=== PATIENT | female | born 1930 | race Caucasian/White ===

== ENCOUNTER 2016-07-24 16:45 | Emergency (ER) | payer MEDICARE, BC ==
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
[2016-07-24 17:49] LABS: Basophils # (A) 0.1 k/uL (0-0.2); Basophils % (A) 1 %; CH 28.5; Eosinophils # (A) 0.1 k/uL (0-0.7); Eosinophils % (A) 2 %; HCT 34.7 % (34.0-46.0); HDW 2.71; HGB 11.9 gm/dL (11.4-16.0); Luc # (Auto) 0.07; Luc % (Auto) 1; Lymphocytes # (A) 1.6 k/uL (1.0-4.8); Lymphocytes % (A) 24 %; MCHC 34.2 g/dL (31.0-37.0); MCV 81.7 fL (80.0-100.0); Mean Platelet Volume 8.4; Monocytes # (A) 0.5 k/uL (0-1.0); Monocytes % (A) 8 %; Neutrophils # (A) 4.3 k/uL (1.3-7.7); Neutrophils % (A) 65 %; RBC 4.24 m/uL (3.80-5.40); RDW 14.2 % (11.5-15.5); WBC 6.7 k/uL (3.8-10.6); WBC (Perox) 6.76
[2016-07-24 18:02] LABS: ALT 73 U/L (9-52); AST 53 U/L (14-36); Alkaline Phosphatase 117 U/L (38-126); Anion Gap 10 mmol/L; Blood Urea Nitrogen 19 mg/dL (7-17); Carbon Dioxide 28 mmol/L (22-30); Chloride 91 mmol/L (98-107); Glucose 105 mg/dL (74-99); Non-African American GFR(MDRD) 52 (>60 ml/min/1.73 sqM); Potassium 3.8 mmol/L (3.5-5.1); Sodium 129 mmol/L (137-145); Total Bilirubin 0.5 mg/dL (0.2-1.3); Total Protein 7.1 g/dL (6.3-8.2)
[2016-07-24 18:19] LABS: Creatine Kinase MB 2.4 ng/mL (0.0-2.4)
--- NOTE | 2016-07-24 18:32 | CT ---
EXAMINATION TYPE: CT brain jelena wo con DATE OF EXAM: 07/24/2016 6:13 PM COMPARISON: NONE HISTORY: Pt fell today, left sided pain. CT DLP: 1463.1 mGycm, Automated exposure control for dose reduction was used. CONTRAST: None CT of the brain is performed utilizing 3 mm thick sections through the posterior fossa and 3 mm thick sections through the remaining calvarium. Study is performed within 24 hours of arrival to the hospital. No abnormal hyperdensity is present to suggest an acute intracranial hemorrhage. No mass lesion is evident. No acute infarcts are evident. There is mild periventricular white matter hypodensity, likely on the basis of microvascular ischemic changes. Ventricles and sulci are appropriate for the patient age. There is an air-fluid level within right maxillary sinus. Correlate for acute sinusitis. Orbital floo r appears intact on the coronal plane images. Left septal deviation is noted. Remaining paranasal sin uses are clear. Mild mucosal thickening may be within ethmoid air cells. Mastoid air cells are clear. IMPRESSIONS: 1. Mild periventricular white matter ischemic changes. 2. Clinical correlation recommended for acute right maxillary sinusitis CT cervical spine. COMPARISON: None CT of the cervical spine is performed in the axial plane at 2 mm thick sections. Reconstructed image s in the coronal, and sagittal plane are reviewed on the computer. No acute fractures are evident. Vertebral body alignment is normal. Disc space narrowing C5-C6 is present. Vertebral body heights are preserved. No spinal canal stenosis is evident. Mild foraminal narrowing is present from uncovertebral joint hypertrophy. Note is made of some facet degenerative changes as well. IMPRESSIONS: 1. No acute osseous abnormality. 2. Degenerative changes within the cervical spine
--- NOTE | 2016-07-24 18:33 | XR ---
EXAMINATION TYPE: XR chest 2V DATE OF EXAM: 07/24/2016 6:20 PM COMPARISON: NONE INDICATION: Cough TECHNIQUE: Single frontal view of the chest is obtained. FINDINGS: The heart size is normal. The pulmonary vasculature is upper limits of normal for size.. The lungs are clear. IMPRESSION: 1. Early volume overload may be present. Clinical correlation recommended
[2016-07-24 19:01] VITALS: RESP 18
[2016-07-24] MEDS ORDERED: SODIUM CHLORIDE 0.9% 500 ML IV STA (19:21)
[2016-07-24 20:33] LABS: Appearance,Urine Clear (Clear); Bacteria,Urine Rare /hpf; Bilirubin,Urine Negative (Negative); Glucose,Urine (UA) Negative (Negative); Ketones,Urine Negative (Negative); Leukocyte Esterase,Urine Moderate (Negative); Mucus,Urine Rare /hpf; Nitrite,Urine Negative (Negative); Particle Count 11210; Protein,Urine Negative (Negative); RBC,Urine 1 /hpf (0-5); Specific Gravity,Urine 1.004 (1.001-1.035); Squamous Epithelial Cell,Urine <1 /hpf (0-4); UA Billing (MACRO vs. MICRO) MICRO; Urobilinogen,Urine <2.0 mg/dL (<2.0); WBC,Urine 25 /hpf (0-5)
[2016-07-24 21:21] VITALS: BP 196/79; PULSE 55; TEMP 96.9
== END 2016-07-24 21:21 | disposition home or self-care (01) ==
LOC: EC 16:45
DX: S20.212A Contusion of left front wall of thorax, initial encounter (principal); S09.90XA Unspecified injury of head, initial encounter; E86.0 Dehydration; I25.2 Old myocardial infarction; I10 Essential (primary) hypertension; I48.91 Unspecified atrial fibrillation; Z82.49 Family history of ischemic heart disease and other diseases of the circulatory system; Z79.52 Long term (current) use of systemic steroids; Z79.899 Other long term (current) drug therapy; Z88.2 Allergy status to sulfonamides; W10.8XXA Fall (on) (from) other stairs and steps, initial encounter; W22.09XA Striking against other stationary object, initial encounter; Y93.01 Activity, walking, marching and hiking; Y92.89 Other specified places as the place of occurrence of the external cause
CPT/HCPCS: 36415; 70450; 71020; 72125; 80053; 81001; 82550; 82553; 83735; 85025; 93005; 99284

== ENCOUNTER 2017-07-01 20:27 | Inpatient (IN) | payer MEDICARE, BC ==
[2017-07-01] MEDS ORDERED: ONDANSETRON 4 MG/2 ML VIAL IVP STA (20:48)
[2017-07-01] MEDS ORDERED: SODIUM CHLORIDE 0.9% 500 ML IV ONE (20:48)
[2017-07-01] MEDS ORDERED: DICYCLOMINE 10 MG/ML 2 ML AMP IM STA (20:48)
--- NOTE | 2017-07-01 20:50 | ED ---
Syncope HPI - General Source: patient, EMS Mode of arrival: EMS Limitations: no limitations <Bravo Turcios - Last Filed: 07/01/17 21:48> <Daniel Campbell - Last Filed: 07/01/17 23:23> - General Chief Complaint: Syncope Stated Complaint: Syncope/Diarrhea Time Seen by Provider: 07/01/17 20:38 - History of Present Illness Initial Comments: This is an 86-year-old female with a history of paroxysmal A. fib, questionable CHF per the patient, diabetes, [place] who presents emergency department for a syncopal event. She states that she was home when she suddenly had the feeling of queasiness come over her lower abdominal area. She states that she tried to make it to the bathroom and then she had a loose stool on the floor. She states that she was able to complete her way to the bathroom and clean herself up. She was then brushing her teeth when all of a sudden she felt lightheaded. She sat down on the toilet and then does not recall anything after that. The family member states that when they walked into the bathroom they noticed that her head was back and her eyes were rolled back in her head. She was having a little bit of trembling. She was unconscious for a minute or so and then came to. EMS was called at that time. The patient states that she currently feels okay however still has a little bit of queasiness in her abdomen. She does not recall having any chest pain or shortness of breath. She states that she has been eating and drinking okay throughout the day. She denies any other acute complaints at this time. (Bravo Turcios) - Related Data Home Medications Medication Instructions Recorded Confirmed Docusate [Colace] 100 mg PO DAILY 09/17/15 05/20/17 Multivit-Min/FA/Lycopen/Lutein 1 tab PO DAILY 12/06/15 05/20/17 [Centrum Silver Tablet] Acetaminophen [Tylenol] 500 mg PO Q4-6H PRN 12/20/15 05/20/17 Levothyroxine Sodium [Synthroid] 50 mcg PO DAILY 07/24/16 05/20/17 Previous Rx's Medication Instructions Recorded Amiodarone [Cordarone] 200 mg PO BID #60 tab 12/11/15 Metoprolol Succinate (ER) [Toprol 25 mg PO DAILY #30 tab.er.24h 12/14/15 XL] Escitalopram [Lexapro] 10 mg PO DAILY #30 tab 12/23/15 Famotidine [Pepcid] 40 mg PO DAILY tab 05/22/17 HYDROcodone/APAP 5-325MG [[place] 1 - 2 each PO Q4-6H PRN #90 tab 05/22/17 5-325] Sennosides-Docusate Sodium 1 tab PO BID #60 tablet 05/22/17 [Senokot-S] Allergies Allergy/AdvReac Type Severity Reaction Status Date / Time sulfamethoxazole Allergy Rash/Hives Verified 07/01/17 20:45 [From Bactrim] trimethoprim [From Bactrim] Allergy Rash/Hives Verified 07/01/17 20:45 Review of Systems ROS Other: All systems not noted in ROS Statement are negative. <Bravo Turcios - Last Filed: 07/01/17 21:48> ROS Other: All systems not noted in ROS Statement are negative. <Daniel Campbell - Last Filed: 07/01/17 23:23> ROS Statement: Those systems with pertinent positive or pertinent negative responses have been documented in the HPI. Past Medical History Past Medical History: Atrial Fibrillation, Cancer, Hypertension, Myocardial Infarction ([place]), Pneumonia Additional Past Medical History / Comment(s): borderline diabetic, diverticulitIs, SCIATIC NERVE PAIN, UTI, SKIN CANCER REMOVED FROM FACE, CONSTIPATION, CHRONIC BACK PAIN DJD, RT INGUINAL HERNIA, GROVERS DISEASE Last Myocardial Infarction Date:: 1995? [facility]ST GUESS History of Any Multi-Drug Resistant Organisms: None Reported Past Surgical History: Adenoidectomy, Appendectomy, Cholecystectomy, Hernia Repair, Hysterectomy, Tonsillectomy Additional Past Surgical History / Comment(s): varicose vein, CATARACTS, SKIN CANCER REMOVED FROM FACE, COLONOSCOPY. Past Anesthesia/Blood Transfusion Reactions: No Reported Reaction Past Psychological History: No Psychological Hx Reported Smoking Status: Never smoker Past Alcohol Use History: None Reported Past Drug Use History: None Reported - Past Family History Sister(s) Family Medical History: Cancer Additional Family Medical History / Comment(s): BONE CA Mother Family Medical History: Myocardial Infarction ([place]) Father Family Medical History: Congestive Heart Failure (CHF) <Bravo Turcios - Last Filed: 07/01/17 21:48> General Exam Limitations: no limitations <Bravo Turcios - Last Filed: 07/01/17 21:48> <Daniel Campbell - Last Filed: 07/01/17 23:23> - General Exam Comments Initial Comments: Constitutional: Awake alert Appears comfortable Head: Normocephalic atraumatic Eyes: no conjunctival injection No scleral icterus EOMI, no conjunctival Neck: No JVD Supple Heart: Bradycardia with regular rhythm normal S1-S2 no murmurs Lungs: Clear to auscultation bilaterally No wheezing No rales Abdomen: Soft nondistended nontender Extremities: Non edematous DP pulses intact Radial pulses intact Neuro: A&Ox3 No focal neurologic deficits Psych: Appropriate mood and affect (Bravo Turcios) Vital Signs 07/01/17 07/01/17 07/01/17 20:27 21:21 22:36 Temperature 98.3 F 97.4 F L Pulse Rate 50 L 52 L 58 L Respiratory 18 18 18 Rate Blood Pressure 136/61 168/68 146/65 O2 Sat by Pulse 96 97 97 Oximetry EKG Findings - EKG Comments: EKG Findings:: EKG showing sinus bradycardia with a rate of 51. There is no abnormal ST segment changes. There is T-wave flattening inferiorly and laterally. QTC is 407. Other intervals are normal. No ectopy. <Bravo Turcios - Last Filed: 07/01/17 21:48> Medical Decision Making - Lab Data Result diagrams: 07/01/17 20:40 <Bravo Turcios - Last Filed: 07/01/17 21:48> - Lab Data Result diagrams: 07/01/17 20:40 07/01/17 21:20 <Daniel Campbell - Last Filed: 07/01/17 23:23> - Medical Decision Making Patient's lipase is elevated however when he went and saw the patient she was having no vomiting and she was in no pain and even on palpation had no pain. Patient also mentioned that 5 weeks ago she did hurt her shoulder but it never had it evaluated. I spoke with Lilly and she agreed with admission. I wrote admitting orders. I consult the GI. I consult the orthopedics (Daniel Campbell) - Lab Data Lab Results 07/01/17 07/01/17 07/01/17 Range/Units 20:40 20:40 20:40 WBC 8.3 (3.8-10.6) k/uL RBC 3.90 (3.80-5.40) m/uL Hgb 10.9 L (11.4-16.0) gm/dL Hct 32.9 L (34.0-46.0) % MCV 84.3 (80.0-100.0) fL MCH 28.0 (25.0-35.0) pg MCHC 33.2 (31.0-37.0) g/dL RDW 15.8 H (11.5-15.5) % Plt Count 124 L D (150-450) k/uL Neutrophils % 61 % Lymphocytes % 25 % Monocytes % 9 % Eosinophils % 3 % Basophils % 1 % Neutrophils # 5.1 (1.3-7.7) k/uL Lymphocytes # 2.1 (1.0-4.8) k/uL Monocytes # 0.7 (0-1.0) k/uL Eosinophils # 0.3 (0-0.7) k/uL Basophils # 0.0 (0-0.2) k/uL PT (9.0-12.0) sec INR (<1.2) APTT (22.0-30.0) sec Sodium (137-145) mmol/L Potassium (3.5-5.1) mmol/L Chloride (98-107) mmol/L Carbon Dioxide (22-30) mmol/L Anion Gap mmol/L BUN (7-17) mg/dL Creatinine (0.52-1.04) mg/dL Est GFR (MDRD) Af Amer (>60 ml/min/1.73 sqM) Est GFR (MDRD) Non-Af (>60 ml/min/1.73 sqM) Glucose (74-99) mg/dL Calcium (8.4-10.2) mg/dL Magnesium (1.6-2.3) mg/dL Total Bilirubin (0.2-1.3) mg/dL AST (14-36) U/L ALT (9-52) U/L Alkaline Phosphatase (38-126) U/L Total Creatine Kinase (30-135) U/L CK-MB (CK-2) (0.0-2.4) ng/mL CK-MB (CK-2) Rel Index Troponin I (0.000-0.034) ng/mL NT-Pro-B Natriuret Pep 544 pg/mL Total Protein (6.3-8.2) g/dL Albumin (3.5-5.0) g/dL Lipase (23-300) U/L Urine Color Urine Appearance (Clear) Urine pH (5.0-8.0) Ur Specific [place] (1.001-1.035) Urine Protein (Negative) Urine Glucose (UA) (Negative) Urine Ketones (Negative) Urine Blood (Negative) Urine Nitrite (Negative) Urine Bilirubin (Negative) Urine Urobilinogen (<2.0) mg/dL Ur Leukocyte Esterase (Negative) Urine RBC (0-5) /hpf Urine WBC (0-5) /hpf Ur Squamous Epith Cells (0-4) /hpf Urine Bacteria (None) /hpf Hyaline Casts (0-2) /lpf Urine Mucus (None) /hpf Blood Type O Positive Blood Type Recheck No Antibody Screen NEGATIVE Spec Expiration Date 07/04/2017233907/01/17 07/01/17 07/01/17 Range/Units 20:40 21:20 21:20 WBC (3.8-10.6) k/uL RBC (3.80-5.40) m/uL Hgb (11.4-16.0) gm/dL Hct (34.0-46.0) % MCV (80.0-100.0) fL MCH (25.0-35.0) pg MCHC (31.0-37.0) g/dL RDW (11.5-15.5) % Plt Count (150-450) k/uL Neutrophils % % Lymphocytes % % Monocytes % % Eosinophils % % Basophils % % Neutrophils # (1.3-7.7) k/uL Lymphocytes # (1.0-4.8) k/uL Monocytes # (0-1.0) k/uL Eosinophils # (0-0.7) k/uL Basophils # (0-0.2) k/uL PT 10.5 (9.0-12.0) sec INR 1.1 (<1.2) APTT 23.4 (22.0-30.0) sec Sodium 124 L (137-145) mmol/L Potassium 3.8 (3.5-5.1) mmol/L Chloride 89 L (98-107) mmol/L Carbon Dioxide 28 (22-30) mmol/L Anion Gap 7 mmol/L BUN 26 H (7-17) mg/dL Creatinine 1.10 H (0.52-1.04) mg/dL Est GFR (MDRD) Af Amer 57 (>60 ml/min/1.73 sqM) Est GFR (MDRD) Non-Af 47 (>60 ml/min/1.73 sqM) Glucose 111 H (74-99) mg/dL Calcium 8.4 (8.4-10.2) mg/dL Magnesium 1.9 (1.6-2.3) mg/dL Total Bilirubin 0.2 (0.2-1.3) mg/dL AST 26 (14-36) U/L ALT 38 (9-52) U/L Alkaline Phosphatase 142 H (38-126) U/L Total Creatine Kinase 26 L (30-135) U/L CK-MB (CK-2) 0.8 (0.0-2.4) ng/mL CK-MB (CK-2) Rel Index 3.1 Troponin I <0.012 (0.000-0.034) ng/mL NT-Pro-B Natriuret Pep pg/mL Total Protein 5.8 L (6.3-8.2) g/dL Albumin 3.0 L (3.5-5.0) g/dL Lipase 1381 H (23-300) U/L Urine Color Urine Appearance (Clear) Urine pH (5.0-8.0) Ur Specific [place] (1.001-1.035) Urine Protein (Negative) Urine Glucose (UA) (Negative) Urine Ketones (Negative) Urine Blood (Negative) Urine Nitrite (Negative) Urine Bilirubin (Negative) Urine Urobilinogen (<2.0) mg/dL Ur Leukocyte Esterase (Negative) Urine RBC (0-5) /hpf Urine WBC (0-5) /hpf Ur Squamous Epith Cells (0-4) /hpf Urine Bacteria (None) /hpf Hyaline Casts (0-2) /lpf Urine Mucus (None) /hpf Blood Type Blood Type Recheck Antibody Screen Spec Expiration Date 07/01/17 Range/Units 22:45 WBC (3.8-10.6) k/uL RBC (3.80-5.40) m/uL Hgb (11.4-16.0) gm/dL Hct (34.0-46.0) % MCV (80.0-100.0) fL MCH (25.0-35.0) pg MCHC (31.0-37.0) g/dL RDW (11.5-15.5) % Plt Count (150-450) k/uL Neutrophils % % Lymphocytes % % Monocytes % % Eosinophils % % Basophils % % Neutrophils # (1.3-7.7) k/uL Lymphocytes # (1.0-4.8) k/uL Monocytes # (0-1.0) k/uL Eosinophils # (0-0.7) k/uL Basophils # (0-0.2) k/uL PT (9.0-12.0) sec INR (<1.2) APTT (22.0-30.0) sec Sodium (137-145) mmol/L Potassium (3.5-5.1) mmol/L Chloride (98-107) mmol/L Carbon Dioxide (22-30) mmol/L Anion Gap mmol/L BUN (7-17) mg/dL Creatinine (0.52-1.04) mg/dL Est GFR (MDRD) Af Amer (>60 ml/min/1.73 sqM) Est GFR (MDRD) Non-Af (>60 ml/min/1.73 sqM) Glucose (74-99) mg/dL Calcium (8.4-10.2) mg/dL Magnesium (1.6-2.3) mg/dL Total Bilirubin (0.2-1.3) mg/dL AST (14-36) U/L ALT (9-52) U/L Alkaline Phosphatase (38-126) U/L Total Creatine Kinase (30-135) U/L CK-MB (CK-2) (0.0-2.4) ng/mL CK-MB (CK-2) Rel Index Troponin I (0.000-0.034) ng/mL NT-Pro-B Natriuret Pep pg/mL Total Protein (6.3-8.2) g/dL Albumin (3.5-5.0) g/dL Lipase (23-300) U/L Urine Color Yellow Urine Appearance Cloudy H (Clear) Urine pH 7.0 (5.0-8.0) Ur Specific [place] 1.008 (1.001-1.035) Urine Protein Negative (Negative) Urine Glucose (UA) Negative (Negative) Urine Ketones Negative (Negative) Urine Blood Negative (Negative) Urine Nitrite Negative (Negative) Urine Bilirubin Negative (Negative) Urine Urobilinogen 2.0 (<2.0) mg/dL Ur Leukocyte Esterase Trace H (Negative) Urine RBC 1 (0-5) /hpf Urine WBC 4 (0-5) /hpf Ur Squamous Epith Cells <1 (0-4) /hpf Urine Bacteria Rare H (None) /hpf Hyaline Casts 8 H (0-2) /lpf Urine Mucus Rare H (None) /hpf Blood Type Blood Type Recheck Antibody Screen Spec Expiration Date Disposition <Bravo Turcios - Last Filed: 07/01/17 21:48> Time of Disposition: 23:23 <Daniel Campbell - Last Filed: 07/01/17 23:23> Clinical Impression: Syncope, Pancreatitis, Shoulder strain Disposition: ADMITTED IP TO THIS HOSP Referrals: Zak Mantlila DO [Primary Care Provider] - 1-2 days
[2017-07-01 20:58] LABS: Basophils % (A) 1 %; Eosinophils # (A) 0.3 k/uL (0-0.7); Eosinophils % (A) 3 %; HCT 32.9 % (34.0-46.0); HGB 10.9 gm/dL (11.4-16.0); Lymphocytes # (A) 2.1 k/uL (1.0-4.8); Lymphocytes % (A) 25 %; MCHC 33.2 g/dL (31.0-37.0); MCV 84.3 fL (80.0-100.0); Mean Platelet Volume 8.7; Monocytes # (A) 0.7 k/uL (0-1.0); Monocytes % (A) 9 %; Neutrophils # (A) 5.1 k/uL (1.3-7.7); Neutrophils % (A) 61 %; RDW 15.8 % (11.5-15.5); WBC 8.3 k/uL (3.8-10.6)
[2017-07-01 21:02] LABS: Platelet Count 124 k/uL (150-450)
[2017-07-01 21:12] LABS: INR 1.1 (<1.2); Partial Thromboplastin Time 23.4 sec (22.0-30.0); Prothrombin Time 10.5 sec (9.0-12.0)
[2017-07-01 21:53] LABS: Calcium 8.4 mg/dL (8.4-10.2); Magnesium 1.9 mg/dL (1.6-2.3); Potassium 3.8 mmol/L (3.5-5.1); Total Bilirubin 0.2 mg/dL (0.2-1.3); Total Protein 5.8 g/dL (6.3-8.2)
[2017-07-01 22:07] LABS: Creatine Kinase 26 U/L (30-135)
[2017-07-01 22:19] LABS: Creatine Kinase MB 0.8 ng/mL (0.0-2.4); Troponin I <0.012 ng/mL (0.000-0.034)
[2017-07-01 22:56] LABS: Appearance,Urine Cloudy (Clear); Bacteria,Urine Rare /hpf; Bilirubin,Urine Negative (Negative); Blood,Urine Negative (Negative); Color,Urine Yellow; Glucose,Urine (UA) Negative (Negative); Hyaline Casts,Urine 8 /lpf (0-2); Ketones,Urine Negative (Negative); Leukocyte Esterase,Urine Trace (Negative); Mucus,Urine Rare /hpf; Nitrite,Urine Negative (Negative); Protein,Urine Negative (Negative); RBC,Urine 1 /hpf (0-5); Specific Gravity,Urine 1.008 (1.001-1.035); Squamous Epithelial Cell,Urine <1 /hpf (0-4); WBC,Urine 4 /hpf (0-5)
[2017-07-01] MEDS ORDERED: SODIUM CHLORIDE 0.9% 1,000 ML IV ONE (23:23)
--- NOTE | 2017-07-01 23:50 | XR ---
EXAMINATION TYPE: XR shoulder complete RT DATE OF EXAM: 07/01/2017 COMPARISON: NONE HISTORY: Shoulder pain TECHNIQUE: 3 views FINDINGS: There is narrowing of the subacromial joint space. I see no fracture nor dislocation. There is some osteopenia. IMPRESSION: Subacromial impingement probably due to chronic rotator cuff tear. No fracture seen.
[2017-07-02 00:48] VITALS: BMI 26.1
[2017-07-02] MEDS: ACETAMINOPHEN TAB 500 MG TAB PO PRN ×2 (09:43→20:32)
--- NOTE | 2017-07-02 10:18 | P.CRDCN ---
History of Present Illness Consult date: 07/02/17 History of present illness: Mrs. Bruce is a pleasant 86-year-old female past medical history significant for paroxysmal atrial fibrillation, hypertension and syncope. She follows with Dr. Singh as an outpatient. She has a loop recorder in place. History for noon she felt an episode of nausea and upset stomach and try to make it to the bathroom. Unfortunately she did not make it and had a loose bowel movement in the hallway. Sclerae by the time she made it to the bathroom to clean himself up she sat down on the toilet and had a momentary episode of LOC. Prior to and thereafter of the episode she denies chest pain, shortness of breath, dizziness or palpitations. She continued to have ongoing nausea with no vomiting. She states she feels much better today. Has no symptoms. EKG on arrival reveals sinus mechanism with a heart rate of [address] or T wave abnormalities noted. She fell on the left side of her body and complained of some left shoulder pain. X-ray reveals no acute fracture or injury. Laboratory data reviewed, hemoglobin 10.9, platelets 124, sodium 124, potassium 3.8, creatinine 1.1, magnesium 1.9, cardiac enzymes negative 1, lipase 1381. Current cardiac medications include Toprol 25 mg daily and amiodarone 100 mg daily. Most recent echocardiogram has been reviewed and reveals preserved left ventricular systolic function with ejection fraction 50-55% with mitral valve stenosis as well as mitral regurgitation. Review of systems At the time of my exam: CONSTITUTIONAL: Denies fever. Denies chills. EYES: Denies blurred vision. Denies vision changes. Denies eye pain. EARS, NOSE, MOUTH & THROAT: Denies headache. Denies sore throat. Denies ear pain. CARDIOVASCULAR: Denies chest pain. Denies shortness of breath. Denies orthopnea. Denies PND. Denies palpitations. RESPIRATORY: Denies cough. GASTROINTESTINAL: Denies abdominal pain. Denies diarrhea. Denies constipation. Denies nausea. Denies vomiting. MUSCULOSKELETAL: Denies myalgias. INTEGUMENTARY: Denies pruitis. Denies rash. NEUROLOGIC: Denies numbness. Denies tingling. Denies weakness. PSYCHIATRIC: Denies anxiety. Denies depression. ENDOCRINE: Denies fatigue. Denies weight change. Denies polydipsia. Denies polyurina. GENITOURINARY: Denies burning, hematuria or urgency with micturation. HEMATOLOGIC: Denies history of anemia. Denies bleeding. Physical exam Blood pressure 166/70 257 afebrile GENERAL: This is a 86-year-old female in no apparent distress at the time of my examination. HEENT: Head is atraumatic, normocephalic. Pupils are equal, round. Sclerae anicteric. Conjunctivae are clear. Mucous membranes of the mouth are moist. Neck is supple. There is no jugular venous distention. No carotid bruit is heard. LUNGS: Clear to auscultation no wheezes, rales or rhonchi. No chest wall tenderness is noted on palpation or with deep breathing. HEART: Regular rate and rhythm with murmur, no rubs or gallops. S1 and S2 heard. ABDOMEN: Soft, nontender. Bowel sounds are heard. No organomegaly noted. EXTREMITIES: No evidence of peripheral edema and no calf tenderness noted. VASCULAR: Radial and dorsalis pedis pulses palpated, no evidence of clubbing. NEUROLOGIC: Patient is awake, alert and oriented x3. ASSESSMENT 1. Syncope 2. Paroxysmal atrial fibrillation currently maintaining sinus mechanism not on long-term anticoagulation secondary to GI bleeding in the past. 3. Hypertension 4. Thrombocytopenia 5. Hyponatremia 6. Elevated lipase, unknown etiology PLAN Interrogate loop recorder to evaluate for possible arrhythmia. Continue with amiodarone as previously ordered. Nurse Practitioner note has been reviewed, I agree with a documented findings and plan of care. Patient was seen and examined. Past Medical History Past Medical History: Atrial Fibrillation, Cancer, Hypertension, Myocardial Infarction ([place]), Pneumonia Additional Past Medical History / Comment(s): borderline diabetic, diverticulitIs, SCIATIC NERVE PAIN, UTI, SKIN CANCER REMOVED FROM FACE, CONSTIPATION, CHRONIC BACK PAIN DJD, RT INGUINAL HERNIA, GROVERS DISEASE Last Myocardial Infarction Date:: 1995? BEST GUESS History of Any Multi-Drug Resistant Organisms: None Reported Past Surgical History: Adenoidectomy, Appendectomy, Cholecystectomy, Hernia Repair, Hysterectomy, Tonsillectomy Additional Past Surgical History / Comment(s): varicose vein, CATARACTS, SKIN CANCER REMOVED FROM FACE, COLONOSCOPY. Past Anesthesia/Blood Transfusion Reactions: No Reported Reaction Past Psychological History: No Psychological Hx Reported Additional Psychological History / Comment(s): LIVES IN HER OWN HOME,A DAUGHTER STAYS WITH HER IN HER HOME. USES A CANE WHEN UP-HX FALLS(LAST IN SEPTEMBER) Smoking Status: Never smoker Past Alcohol Use History: None Reported Past Drug Use History: None Reported - Past Family History Sister(s) Family Medical History: Cancer Additional Family Medical History / Comment(s): BONE CA Mother Family Medical History: Myocardial Infarction ([place]) Father Family Medical History: Congestive Heart Failure (CHF) Medications and Allergies Home Medications Medication Instructions Recorded Confirmed Type Docusate [Colace] 100 mg PO DAILY 09/17/15 07/02/17 History Multivit-Min/FA/Lycopen/Lutein 1 tab PO DAILY 12/06/15 07/02/17 History [Centrum Silver Tablet] Metoprolol Succinate (ER) [Toprol 25 mg PO DAILY #30 tab.er.24h 12/14/15 Rx XL] Acetaminophen [Tylenol] 500 mg PO Q4-6H PRN 12/20/15 07/02/17 History Escitalopram [Lexapro] 10 mg PO DAILY #30 tab 12/23/15 07/02/17 Rx Levothyroxine Sodium [Synthroid] 100 mcg PO DAILY 07/24/16 07/02/17 History Sennosides-Docusate Sodium 1 tab PO BID #60 tablet 05/22/17 07/02/17 Rx [Senokot-S] Amiodarone [Cordarone] 100 mg PO DAILY 07/02/17 07/02/17 History Famotidine [Pepcid] 40 mg PO BID 07/02/17 07/02/17 History Allergies Allergy/AdvReac Type Severity Reaction Status Date / Time sulfamethoxazole Allergy Rash/Hives Verified 07/02/17 09:10 [From Bactrim] trimethoprim [From Bactrim] Allergy Rash/Hives Verified 07/02/17 09:10 Physical Exam Vitals: Vital Signs Temp Pulse Pulse Resp BP BP Pulse Ox 07/02/17 07:00 97.3 F L 57 L 16 166/72 99 07/02/17 00:25 98.0 F 66 16 132/63 94 L 07/01/17 22:36 97.4 F L 58 L 18 146/65 97 07/01/17 21:21 52 L 18 168/68 97 07/01/17 20:27 98.3 F 50 L 18 136/61 96 Intake and Output 07/01/17 07/02/17 07/02/17 22:59 06:59 14:59 Intake Total 600 Balance 600 Intake: Intake, IV Titration 400 Amount Sodium Chloride 0.9% 1, 400 000 ml @ 75 mls/hr IV . [id number] ONE Rx#:[id number] Oral 200 Other: # Voids 1 1 Weight 86.183 kg 66.81 kg Results 07/01/17 20:40 07/01/17 21:20 Cardiac Enzymes 07/01/17 07/01/17 Range/Units 21:20 21:20 AST 26 (14-36) U/L CK-MB (CK-2) 0.8 (0.0-2.4) ng/mL Troponin I <0.012 (0.000-0.034) ng/mL Coagulation 07/01/17 Range/Units 20:40 PT 10.5 (9.0-12.0) sec APTT 23.4 (22.0-30.0) sec CBC 07/01/17 Range/Units 20:40 WBC 8.3 (3.8-10.6) k/uL RBC 3.90 (3.80-5.40) m/uL Hgb 10.9 L (11.4-16.0) gm/dL Hct 32.9 L (34.0-46.0) % Plt Count 124 L D (150-450) k/uL Comprehensive Metabolic Panel 07/01/17 Range/Units 21:20 Sodium 124 L (137-145) mmol/L Potassium 3.8 (3.5-5.1) mmol/L Chloride 89 L (98-107) mmol/L Carbon Dioxide 28 (22-30) mmol/L BUN 26 H (7-17) mg/dL Creatinine 1.10 H (0.52-1.04) mg/dL Glucose 111 H (74-99) mg/dL Calcium 8.4 (8.4-10.2) mg/dL AST 26 (14-36) U/L ALT 38 (9-52) U/L Alkaline Phosphatase 142 H (38-126) U/L Total Protein 5.8 L (6.3-8.2) g/dL Albumin 3.0 L (3.5-5.0) g/dL Current Medications Generic Name Dose Route Start Last Admin Trade Name Freq PRN Reason Stop Dose Admin Acetaminophen 500 mg 07/02/17 00:49 07/02/17 09:43 Tylenol Tab PO 500 mg Q6H PRN Administration Pain Sodium Chloride 1,000 mls @ 75 mls/hr 07/01/17 23:23 07/02/17 02:14 Saline 0.9% IV 07/02/17 12:42 75 mls/hr .[id number] ONE Administration Intake and Output 07/01/17 07/02/17 07/02/17 22:59 06:59 14:59 Intake Total 600 Balance 600 Intake: Intake, IV Titration 400 Amount Sodium Chloride 0.9% 1, 400 000 ml @ 75 mls/hr IV . [id number] ONE Rx#:[id number] Oral 200 Other: # Voids 1 1 Weight 86.183 kg 66.81 kg 07/01/17 20:40 07/01/17 21:20
--- NOTE | 2017-07-02 10:36 | P.CNOR ---
History of Present Illness - [facility] Consult date: 07/02/17 Requesting physician: Sasha Carr Consult reason: joint pain History of present illness: 86-year-old patient presented to the emergency room with history of syncopal episode. Patient reported right shoulder pain and orthopedic consultation was requested. Patient reports intermittent symptoms for several years now. Patient reports limited range of motion and weakness. Review of Systems Constitutional: Reports as per [facility] Past Medical History Past Medical History: Atrial Fibrillation, Cancer, Hypertension, Myocardial Infarction ([place]), Pneumonia Additional Past Medical History / Comment(s): borderline diabetic, diverticulitIs, SCIATIC NERVE PAIN, UTI, SKIN CANCER REMOVED FROM FACE, CONSTIPATION, CHRONIC BACK PAIN DJD, RT INGUINAL HERNIA, GROVERS DISEASE Last Myocardial Infarction Date:: 1995? BEST GUESS History of Any Multi-Drug Resistant Organisms: None Reported Past Surgical History: Adenoidectomy, Appendectomy, Cholecystectomy, Hernia Repair, Hysterectomy, Tonsillectomy Additional Past Surgical History / Comment(s): varicose vein, CATARACTS, SKIN CANCER REMOVED FROM FACE, COLONOSCOPY. Past Anesthesia/Blood Transfusion Reactions: No Reported Reaction Past Psychological History: No Psychological Hx Reported Additional Psychological History / Comment(s): LIVES IN HER OWN HOME,A DAUGHTER STAYS WITH HER IN HER HOME. USES A CANE WHEN UP-HX FALLS(LAST IN SEPTEMBER) Smoking Status: Never smoker Past Alcohol Use History: None Reported Past Drug Use History: None Reported - Past Family History Sister(s) Family Medical History: Cancer Additional Family Medical History / Comment(s): BONE CA Mother Family Medical History: Myocardial Infarction ([place]) Father Family Medical History: Congestive Heart Failure (CHF) Medications and Allergies Home Medications Medication Instructions Recorded Confirmed Type Docusate [Colace] 100 mg PO DAILY 09/17/15 07/02/17 History Multivit-Min/FA/Lycopen/Lutein 1 tab PO DAILY 12/06/15 07/02/17 History [Centrum Silver Tablet] Metoprolol Succinate (ER) [Toprol 25 mg PO DAILY #30 tab.er.24h 12/14/15 Rx XL] Acetaminophen [Tylenol] 500 mg PO Q4-6H PRN 12/20/15 07/02/17 History Escitalopram [Lexapro] 10 mg PO DAILY #30 tab 12/23/15 07/02/17 Rx Levothyroxine Sodium [Synthroid] 100 mcg PO DAILY 07/24/16 07/02/17 History Sennosides-Docusate Sodium 1 tab PO BID #60 tablet 05/22/17 07/02/17 Rx [Senokot-S] Amiodarone [Cordarone] 100 mg PO DAILY 07/02/17 07/02/17 History Famotidine [Pepcid] 40 mg PO BID 07/02/17 07/02/17 History Allergies Allergy/AdvReac Type Severity Reaction Status Date / Time sulfamethoxazole Allergy Rash/Hives Verified 07/02/17 09:10 [From Bactrim] trimethoprim [From Bactrim] Allergy Rash/Hives Verified 07/02/17 09:10 Physical Examination Osteopathic Statement: *. No significant issues noted on an osteopathic structural exam other than those noted in the History and Physical/Consult. On evaluation of the right shoulder there is no evidence for any ecchymosis or swelling about the shoulder girdle. Actively the patient is able to flex to about 30 abduct to about 30 and external rotation is 10 shy of neutral. There is diffuse tenderness along the anterior lateral acromial and rotator cuff insertion site. There is significant weakness with any attempt at external rotation. Drop arm sign is positive. No tenderness along the scapula. Distal neurovascular exam is intact. Results - Labs Labs: Abnormal Lab Results - Last 24 Hours (Table) 07/01/17 07/01/17 07/01/17 Range/Units 20:40 21:20 21:20 Hgb 10.9 L (11.4-16.0) gm/dL Hct 32.9 L (34.0-46.0) % RDW 15.8 H (11.5-15.5) % Plt Count 124 L D (150-450) k/uL Sodium 124 L (137-145) mmol/L Chloride 89 L (98-107) mmol/L BUN 26 H (7-17) mg/dL Creatinine 1.10 H (0.52-1.04) mg/dL Glucose 111 H (74-99) mg/dL Alkaline Phosphatase 142 H (38-126) U/L Total Creatine Kinase 26 L (30-135) U/L Total Protein 5.8 L (6.3-8.2) g/dL Albumin 3.0 L (3.5-5.0) g/dL Lipase 1381 H (23-300) U/L Urine Appearance (Clear) Ur Leukocyte Esterase (Negative) Urine Bacteria (None) /hpf Hyaline Casts (0-2) /lpf Urine Mucus (None) /hpf 07/01/17 Range/Units 22:45 Hgb (11.4-16.0) gm/dL Hct (34.0-46.0) % RDW (11.5-15.5) % Plt Count (150-450) k/uL Sodium (137-145) mmol/L Chloride (98-107) mmol/L BUN (7-17) mg/dL Creatinine (0.52-1.04) mg/dL Glucose (74-99) mg/dL Alkaline Phosphatase (38-126) U/L Total Creatine Kinase (30-135) U/L Total Protein (6.3-8.2) g/dL Albumin (3.5-5.0) g/dL Lipase (23-300) U/L Urine Appearance Cloudy H (Clear) Ur Leukocyte Esterase Trace H (Negative) Urine Bacteria Rare H (None) /hpf Hyaline Casts 8 H (0-2) /lpf Urine Mucus Rare H (None) /hpf H & H 07/01/17 Range/Units 20:40 Hgb 10.9 L (11.4-16.0) gm/dL Hct 32.9 L (34.0-46.0) % Coagulation 07/01/17 Range/Units 20:40 INR 1.1 (<1.2) Result Diagrams: 07/01/17 20:40 07/01/17 21:20 - Diagnostic results Shoulder x-ray: report reviewed, image reviewed (Superior migration of the humeral head consistent with rotator cuff arthropathy. Cystic changes of the tuberosity.) Assessment and Plan Assessment: Right shoulder rotator cuff arthropathy Plan: 1. The patient may progress with activities as tolerated regarding the right shoulder 2. Analgesics as indicated 3. If patient remains symptomatic then follow up on an outpatient basis would be indicated Time with Patient: Less than 30
[2017-07-02] MEDS: HEPARIN SODIUM,PORCINE 5,000 UNIT/ML 1 ML VIAL SQ SCH ×2 (13:44→20:32)
[2017-07-02] MEDS: AMIODARONE 100 MG TAB PO SCH (13:44)
[2017-07-02] MEDS: SODIUM CHLORIDE 0.9% 1,000 ML IV SCH (13:46)
[2017-07-02] MEDS: IOHEXOL 350 MG/ML 25 ML BOTTLE (ORAL USE) PO PRN ×2 (15:05→15:56)
--- NOTE | 2017-07-02 17:20 | CT ---
EXAMINATION TYPE: CT abdomen pelvis wo con DATE OF EXAM: 07/02/2017 COMPARISON: NONE HISTORY: Generalized abdominal pain. CT DLP: 516.3 mGycm Automated exposure control for dose reduction was used. TECHNIQUE: Helical acquisition of images was performed from the lung bases through the pelvis. FINDINGS: Lung bases are clear. No pleural or pericardial effusion is identified. Evaluation of the visceral organs of the abdomen is suboptimal without the use of intravenous contras t. The liver, spleen, adrenal glands, and kidneys are unremarkable. No hydronephrosis is identified. The pancreas is slightly atrophic but otherwise unremarkable. Thickening is noted in the pylorus of the stomach which is of unknown significance or etiology. There is no free fluid or free intraperitoneal air. The urinary bladder is diffusely distended. There is a inguinal hernia identified on the right which contains several nondilated loops of bowel. Herni a sac measures 4.3 x 4.9 cm and the neck of the hernia measures roughly 3.9 cm. There is a fracture o f the right pubic bone of both the superior and inferior aspects of the ring. No abnormally dilated loops of bowel are identified which would suggest bowel obstruction. Diverticul osis is identified in the descending and sigmoid colon. No definite evidence of acute diverticulitis is seen. The aorta is not dilated. IMPRESSION: 1. The urinary bladder is diffusely distended. Correlation for urinary retention and possible Narvaez c atheter placement is recommended. 2. Fractures identified of the right pubic bone. 3. Right-sided inguinal hernia is identified which appears to have a large neck. Nondilated loops of bowel are identified going into this hernia sac. 4. Diverticulosis without definite evidence of acute diverticulitis. 5. Thickening of the antrum/pylorus of the stomach unknown significance or etiology. Clinical correla tion is recommended. Endoscopy can be performed if warranted.
--- NOTE | 2017-07-02 19:20 | HP ---
HISTORY AND PHYSICAL DATE OF SERVICE: 07/02/2017 I am covering for Dr. Mantilla. CHIEF COMPLAINTS: Syncope. HISTORY OF PRESENT ILLNESS: This 86-year-old woman with a past medical history of multiple medical problems including history of atrial fibrillation, history of hypertension, history of myocardial infarction, history of diabetes and history of diabetes, history of sciatic nerve , adenoidectomy being followed by Dr. Mantilla in the outpatient setting is apparently admitted to [facility] with complaints with features of syncopal episode. The patient is had a sudden feeling of queasiness in the lower abdominal area. Subsequently patient tried to make it to the bathroom, but the patient had loose stool on the floor and subsequently the patient became lightheaded and sat down on the toilet and after that unable to recall things that happened. The patient is admitted for further evaluation and treatment. There is no history of fever, rigors. No history of headache, loss of consciousness, seizures. After admission, patient is found to have features of acute pancreatitis and also complaining of right shoulder pain also. PAST MEDICAL HISTORY: Atrial fibrillation, hypertension, myocardial infarction, appendectomy and cholecystectomy. MEDICATIONS: Prior to admission include home medications are: 1. Senna 1 tab p.o. b.i.d. 2. Multivitamins 1 p.o. daily. 3. Toprol-XL 25 mg p.o. 4. Synthroid 100 mcg p.o. daily. 5. Pepcid 40 mg p.o. b.i.d. 6. Lexapro 10 mg p.o. daily. 7. Colace 100 mg daily. 8. Cordarone 100 mg p.o. daily. 9. Tylenol 500 mg q.6h p.r.n. ALLERGIES: BACTRIM. FAMILY HISTORY: History of bone cancer in the family. SOCIAL HISTORY: No history of smoking. No history of alcohol intake. REVIEW OF SYSTEMS: ENT: Diminished hearing and diminished vision. CARDIOVASCULAR: No angina or palpitations. Respiratory: As mentioned earlier. GI: As mentioned earlier. : No dysuria. Nervous system: No numbness, weakness. Allergy/Immunology: No asthma or hayfever. Musculoskeletal: As mentioned earlier. HEMATOLOGY/ONCOLOGY: No history of anemia. ENDOCRINE: No history of diabetes. Hypothyroidism present. Constitutional: As mentioned earlier. Dermatology: Negative. Rheumatology: Negative. Psychiatric : As mentioned earlier. PHYSICAL EXAMINATION: The patient is alert and oriented times three. Pulse 57, blood pressure 160/72, respirations 16, temperature 97.3, pulse ox 98% on room air. HEENT: Conjunctivae normal. Oral mucosa moist. Neck is no jugular venous distention. No carotid bruit. No lymph nodes enlargement. Cardiovascular system: S1, S2 muffled. No S3, no S4. Respiratory: Breath sounds diminished in the bases. Scattered rhonchi. No crackles. ABDOMEN: Soft, nontender. No mass palpable. LEGS: No edema, no swelling. Nervous system: Higher functions as mentioned earlier, moves all 4 limbs, no focal motor or sensory deficits. Lymphatics: No lymph nodes palpable in the neck, axilla or groin. Skin no ulcer, rash or bleeding. LABS: WBC 8.2, hemoglobin 10.2, platelets 124. Sodium 134, creatinine is 1.10, and alkaline phosphatase 143. UA cloudy. ASSESSMENT: 1. Syncope for evaluation possibly vasovagal. 2. Rule out orthostatic hypotension, cardiac arrhythmia. 3. Acute pancreatitis with elevated lipase. 4. Increased creatinine with mild acute renal failure with secondary dehydration. 5. Hyponatremia. 6. Thrombocytopenia. 7. Anemia. 8. History of atrial fibrillation. 9. Hypertension. 10.History of myocardial infarction. 11.History of diverticulitis. 12.History of sciatic nerve pain. 13.History of urinary tract infection. 14.History of appendectomy. 15.History of cholecystectomy. 16.History of hernia repair. RECOMMENDATIONS AND DISCUSSION: In this 86-year-old woman who presented with multiple complex medical issues, we will monitor the patient closely, continue the current medications, management and symptomatic treatment. Otherwise, at this time, I would recommend swab for the flu. Continue the antibiotic. Continue with IV fluids. Otherwise I would also recommend DVT prophylaxis. Continue the rest of the home medication. Orthostatic vitals. Guarded prognosis because of multiple complex medical issues. Further recommendations to follow. MMODL / IJN: [id number] / MTDD
[2017-07-02 20:23] VITALS: RESP 16
--- NOTE | 2017-07-03 00:36 | P.CONS ---
History of Present Illness - Reason for Consult Consult date: 07/02/17 Pancreatitis - History of Present Illness The patient is an 86-year-old female with a history of paroxysmal A. fib, questionable CHF per the patient, diabetes, ME who presents emergency department for a syncopal event. She states that she was home when she suddenly had the feeling of queasiness come over her lower abdominal area. She states that she tried to make it to the bathroom and then she had a loose stool on the floor. She states that she was able to complete her way to the bathroom and clean herself up. She was then brushing her teeth when all of a sudden she felt lightheaded. She sat down on the toilet and then does not recall anything after that. The family member states that when they walked into the bathroom they noticed that her head was back and her eyes were rolled back in her head. She was having a little bit of trembling. She was unconscious for a minute or so and then came to. EMS was called at that time. The patient states that she currently feels okay however still has a little bit of queasiness in her abdomen. She does not recall having any chest pain or shortness of breath. She states that she has been eating and drinking okay throughout the day. She denies any other acute complaints at this time. Review of Systems Constitutional: Denies fever, chills, sweats, weight gain, or loss. HEENT: Negative for migraines, blurred vision or loss, earaches, drainage, tinnitus, oral mucosal lesions, dysphagia, or odynophagia. Cardiac: Negative for chest pain, arrhythmias, or palpitation. Respiratory: Negative for shortness of breath, hemoptysis, cough, or sputum production. Gastrointestinal: See HPI for pertinent findings. Genitourinary: Negative for hematuria, urgency, frequency, polyuria, dysuria. Musculoskeletal: Negative for muscle aches, swelling, arthritis, and arthralgias. Neurologic: Negative for stroke or TIA. Endocrine: Negative for thyroid problems. Skin: Negative for rash or itching. Psychiatric: Negative history for depression and anxiety Past Medical History Past Medical History: Atrial Fibrillation, Cancer, Hypertension, Myocardial Infarction (ME), Pneumonia Additional Past Medical History / Comment(s): borderline diabetic, diverticulitIs, SCIATIC NERVE PAIN, UTI, SKIN CANCER REMOVED FROM FACE, CONSTIPATION, CHRONIC BACK PAIN DJD, RT INGUINAL HERNIA, GROVERS DISEASE Last Myocardial Infarction Date:: 1995? [facility]ST GUESS History of Any Multi-Drug Resistant Organisms: None Reported Past Surgical History: Adenoidectomy, Appendectomy, Cholecystectomy, Hernia Repair, Hysterectomy, Tonsillectomy Additional Past Surgical History / Comment(s): varicose vein, CATARACTS, SKIN CANCER REMOVED FROM FACE, COLONOSCOPY. Past Anesthesia/Blood Transfusion Reactions: No Reported Reaction Past Psychological History: No Psychological Hx Reported Additional Psychological History / Comment(s): LIVES IN HER OWN HOME,A DAUGHTER STAYS WITH HER IN HER HOME. USES A CANE WHEN UP-HX FALLS(LAST IN SEPTEMBER) Smoking Status: Never smoker Past Alcohol Use History: None Reported Past Drug Use History: None Reported - Past Family History Sister(s) Family Medical History: Cancer Additional Family Medical History / Comment(s): BONE CA Mother Family Medical History: Myocardial Infarction (ME) Father Family Medical History: Congestive Heart Failure (CHF) Medications and Allergies Home Medications Medication Instructions Recorded Confirmed Type Docusate [Colace] 100 mg PO DAILY 09/17/15 07/02/17 History Multivit-Min/FA/Lycopen/Lutein 1 tab PO DAILY 12/06/15 07/02/17 History [Centrum Silver Tablet] Metoprolol Succinate (ER) [Toprol 25 mg PO DAILY #30 tab.er.24h 12/14/15 Rx XL] Acetaminophen [Tylenol] 500 mg PO Q4-6H PRN 12/20/15 07/02/17 History Escitalopram [Lexapro] 10 mg PO DAILY #30 tab 12/23/15 07/02/17 Rx Levothyroxine Sodium [Synthroid] 100 mcg PO DAILY 07/24/16 07/02/17 History Sennosides-Docusate Sodium 1 tab PO BID #60 tablet 05/22/17 07/02/17 Rx [Senokot-S] Amiodarone [Cordarone] 100 mg PO DAILY 07/02/17 07/02/17 History Famotidine [Pepcid] 40 mg PO BID 07/02/17 07/02/17 History Allergies Allergy/AdvReac Type Severity Reaction Status Date / Time sulfamethoxazole Allergy Rash/Hives Verified 07/02/17 09:10 [From Bactrim] trimethoprim [From Bactrim] Allergy Rash/Hives Verified 07/02/17 09:10 Physical Exam Vitals: Vital Signs Temp Pulse Pulse Resp BP BP Pulse Ox 07/02/17 15:00 98.7 F 59 L 18 110/65 96 07/02/17 08:00 57 L 16 07/02/17 07:00 97.3 F L 57 L 16 166/72 99 07/02/17 00:25 98.0 F 66 16 132/63 94 L 07/01/17 22:36 97.4 F L 58 L 18 146/65 97 07/01/17 21:21 52 L 18 168/68 97 07/01/17 20:27 98.3 F 50 L 18 136/61 96 Intake and Output 07/02/17 07/02/17 07/02/17 06:59 14:59 22:59 Intake Total 600 1380 Balance 600 1380 Intake: Intake, IV Titration 400 300 Amount Sodium Chloride 0.9% 1, 400 000 ml @ 75 mls/hr IV . [id number] [facility] Rx#:[id number] Sodium Chloride 0.9% 1, 300 000 ml @ 75 mls/hr IV . [id number] [facility] Rx#:[id number] Oral 200 1080 Other: Voiding Method Toilet # Voids 1 3 3 Weight 66.81 kg General appearance: The patient is alert, oriented, in no acute distress. HET: Head is normocephalic and atraumatic. Pupils are equal and reactive. Oropharynx is clear without lesions. Neck: Supple without lymphadenopathy. Trachea midline. Heart: S1 S2. Regular rate and rhythm. Lungs: No crackles or wheezes are heard. Abdomen: Soft, nontender, nondistended with bowel sounds. No peritoneal signs. No palpable organomegaly or masses. Extremities: Normal skin color and turgor. No cyanosis, rash, ulceration, clubbing, or edema. Radial and pedal pulses are 2/4 bilaterally. Neurological: No focal deficits. Strength and sensation are grossly intact. Results CBC & Chem 7: 07/01/17 20:40 07/01/17 21:20 Labs: Abnormal Lab Results - Last 24 Hours (Table) 07/01/17 07/01/17 07/01/17 Range/Units 20:40 21:20 21:20 Hgb 10.9 L (11.4-16.0) gm/dL Hct 32.9 L (34.0-46.0) % RDW 15.8 H (11.5-15.5) % Plt Count 124 L D (150-450) k/uL Sodium 124 L (137-145) mmol/L Chloride 89 L (98-107) mmol/L BUN 26 H (7-17) mg/dL Creatinine 1.10 H (0.52-1.04) mg/dL Glucose 111 H (74-99) mg/dL Alkaline Phosphatase 142 H (38-126) U/L Total Creatine Kinase 26 L (30-135) U/L Total Protein 5.8 L (6.3-8.2) g/dL Albumin 3.0 L (3.5-5.0) g/dL Lipase 1381 H (23-300) U/L Urine Appearance (Clear) Ur Leukocyte Esterase (Negative) Urine Bacteria (None) /hpf Hyaline Casts (0-2) /lpf Urine Mucus (None) /hpf 07/01/17 Range/Units 22:45 Hgb (11.4-16.0) gm/dL Hct (34.0-46.0) % RDW (11.5-15.5) % Plt Count (150-450) k/uL Sodium (137-145) mmol/L Chloride (98-107) mmol/L BUN (7-17) mg/dL Creatinine (0.52-1.04) mg/dL Glucose (74-99) mg/dL Alkaline Phosphatase (38-126) U/L Total Creatine Kinase (30-135) U/L Total Protein (6.3-8.2) g/dL Albumin (3.5-5.0) g/dL Lipase (23-300) U/L Urine Appearance Cloudy H (Clear) Ur Leukocyte Esterase Trace H (Negative) Urine Bacteria Rare H (None) /hpf Hyaline Casts 8 H (0-2) /lpf Urine Mucus Rare H (None) /hpf Assessment and Plan Assessment: Elevated lipase following an episode of syncope, with no clinical or radiological features of pancreatitis. Plan: Agree with your current managemet. It is possible that the elevated lipase is secondary to transient hypoperfusion of pancreas/small bowel. With the thickened pylorus/antrum a penetrating ulcer to be considered. Will keep EGD as a contingency.
[2017-07-03] MEDS: SODIUM CHLORIDE 0.9% 1,000 ML IV SCH ×3 (05:07→20:05)
[2017-07-03] MEDS: LEVOTHYROXINE 100 MCG TAB PO SCH (05:42)
[2017-07-03 07:38] LABS: Basophils % (A) 0 %; Eosinophils # (A) 0.2 k/uL (0-0.7); Eosinophils % (A) 3 %; HGB 10.3 gm/dL (11.4-16.0); Lymphocytes # (A) 1.5 k/uL (1.0-4.8); Lymphocytes % (A) 24 %; MCH 27.2 pg (25.0-35.0); MCHC 32.2 g/dL (31.0-37.0); MCV 84.5 fL (80.0-100.0); Mean Platelet Volume 8.4; Monocytes # (A) 0.6 k/uL (0-1.0); Monocytes % (A) 10 %; Neutrophils # (A) 3.8 k/uL (1.3-7.7); Neutrophils % (A) 61 %; Platelet Count 138 k/uL (150-450); RBC 3.78 m/uL (3.80-5.40); RDW 14.6 % (11.5-15.5); WBC 6.2 k/uL (3.8-10.6)
[2017-07-03 07:58] LABS: ALT 29 U/L (9-52); AST 22 U/L (14-36); Albumin 2.7 g/dL (3.5-5.0); Alkaline Phosphatase 117 U/L (38-126); Amylase 119 U/L (30-110); Anion Gap 5 mmol/L; Blood Urea Nitrogen 15 mg/dL (7-17); Calcium 8.8 mg/dL (8.4-10.2); Carbon Dioxide 29 mmol/L (22-30); Chloride 99 mmol/L (98-107); Cholesterol 106 mg/dL (<200); Glucose 97 mg/dL (74-99); HDL Cholesterol 69 mg/dL (40-60); LDL Cholesterol,Calculated 28 mg/dL (0-99); Lipase 653 U/L (23-300); Potassium 4.4 mmol/L (3.5-5.1); Sodium 133 mmol/L (137-145); Total Bilirubin 0.3 mg/dL (0.2-1.3); Total Protein 5.5 g/dL (6.3-8.2); Triglycerides 45 mg/dL (<150)
[2017-07-03] MEDS: AMIODARONE 100 MG TAB PO SCH (08:17)
[2017-07-03] MEDS: METOPROLOL SUCCINATE (ER) 25 MG TAB.ER.24H PO SCH (08:17)
[2017-07-03] MEDS: ESCITALOPRAM 10 MG TAB PO SCH (08:17)
[2017-07-03] MEDS: HEPARIN SODIUM,PORCINE 5,000 UNIT/ML 1 ML VIAL SQ SCH ×2 (08:17→19:45)
--- NOTE | 2017-07-03 14:25 | P.PN ---
Subjective Progress Note Date: 07/03/17 86-year-old female who presented to the emergency room on 07/01/2017 after she had a syncopal episode at home. She states she was feeling nauseous and was attempting to make it to the bathroom to have a bowel movement but she did not make it in time. She proceeded to the bathroom to clean herself up when she had a brief loss of consciousness. She also had complaints of right shoulder pain. In the emergency room, an EKG was completed revealing sinus bradycardia with no acute ST or T-wave abnormalities. X-ray of the right shoulder was completed revealing subacromial impingement likely due to chronic rotator cuff tear and was negative for fracture. Laboratory studies completed revealed white count of 8.3, hemoglobin 10.9, platelet count 124, sodium 124, potassium 3.9, BUN 26, creatinine 1.10, magnesium 1.9, going phosphatase 142, AST 26, ALC 38, DNP 544. Troponin negative 1. Her lipase was found to be elevated at 1381. Testing for influenza A and B was negative. Urinalysis revealed cloudy urine with trace leukocyte esterase. The patient was admitted to the hospital under the care of Dr. Mantilla. Consultations were placed to cardiology, gastroenterology, and orthopedics. Patient underwent CT of the abdomen and pelvis on 07/02/2017 which revealed urinary bladder that was diffusely distended, correlate for urinary retention, right pubic bone fracture, right-sided inguinal hernia, diverticulosis, and thickening of the antrum/pylorus of the stomach. The patient was seen and examined at the bedside. She is currently without concerns or complaints. She denies chest pain or pressure. Denies shortness of breath. Denies nausea or vomiting. States she is tolerating oral intake without difficulty. She states that she had a bowel movement yesterday and it was normal in characteristics. She states she has been voiding without difficulty, however she states she does feel that she is voiding less than she normally does. Denies frequency or incontinence. Spoke with patient regarding CT results and patient states that she fell in May and was told that she had a fracture in her pelvis. Objective - Vital Signs Vital signs: Vital Signs Temp 97.3 F L 07/03/17 07:00 Pulse 63 07/03/17 08:00 Resp 16 07/03/17 08:00 BP 167/71 07/03/17 07:00 Pulse Ox 94 L 07/03/17 07:00 Intake & Output 07/02/17 07/03/17 07/03/17 18:59 06:59 18:59 Intake Total 1380 225 240 Balance 1380 225 240 Intake: Intake, IV Titration 300 225 Amount Sodium Chloride 0.9% 1, 300 225 000 ml @ 75 mls/hr IV . [id number] [facility] Rx#:[id number] Oral 1080 240 Other: Voiding Method Toilet Bedside Commode Bedside Commode # Voids 3 1 - Exam GENERAL: This is a 86-year-old female in no apparent distress at the time of examination. Pleasant and cooperative. HEENT: Head is atraumatic, normocephalic. Pupils are equal, round, and reactive to light. Sclerae anicteric. Conjunctivae are clear. Mucus membranes of the mouth are moist. Neck is supple. RESPIRATORY: Clear to ausculation. No wheezes, rales, or rhonchi. No use of accessory muscles. Patient maintaining oxygen saturation greater than 92% on room air. No chest wall tenderness is noted on palpation or with deep breathing. CARDIOVASCULAR: Regular rate and rhythm. S1 and S2 noted. No systolic or diastolic murmur auscultated. No JVD noted. No S3 or S4 noted. GASTROINTESTINAL: No distention noted. Abdomen soft and round. Normal active bowel sounds auscultated x 4 quadrants. No pain or tenderness noted upon palpation. INTEGUMENTARY: No cyanosis. No jaundice. No rashes noted. No cellulitis noted. EXTREMITIES: 2+ peripheral pulses. No evidence of peripheral edema. No calf tenderness noted. NEUROLOGIC: Cranial nerves II-XII intact. PSYCHIATRIC: Awake, alert, and oriented X 3. Appropriate affect. Intact judgement and insight. - Labs CBC & Chem 7: 07/03/17 07:16 07/03/17 07:16 Labs: Abnormal Lab Results - Last 24 Hours (Table) 07/03/17 07/03/17 Range/Units 07:16 07:16 RBC 3.78 L (3.80-5.40) m/uL Hgb 10.3 L (11.4-16.0) gm/dL Hct 32.0 L (34.0-46.0) % Plt Count 138 L (150-450) k/uL Sodium 133 L (137-145) mmol/L Total Protein 5.5 L (6.3-8.2) g/dL Albumin 2.7 L (3.5-5.0) g/dL HDL Cholesterol 69 H (40-60) mg/dL Amylase 119 H (30-110) U/L Lipase 653 H (23-300) U/L Assessment and Plan Plan: ASSESSMENT: Syncope Paroxysmal atrial fibrillation, not on long-term anticoagulation secondary to history of GIB Elevated amylase and lipase, no clinical features of pancreatitis, possibly secondary to transient hypoperfusion of pancreas per GI Diabetes mellitus, type II, hemoglobin A1c pending Possible urinary retention Essential hypertension Right shoulder cuff arthropathy Right pubic bone fracture, s/p fall in May per patient Coronary artery disease with history of myocardial infarction Hyponatremia, improving Normocytic, normochromic anemia, type unknown Hypothyroidism PLAN: Cardiology on consult. Appreciate recommendations and input Orthopedics on consult. Appreciate recommendations and input GI on consult. Appreciate recommendations and input Obtain postvoid residual Obtain hemoglobin A1c Capillary blood glucose accu-checks AC/HS NovoLog sliding scale insulin coverage AC/HS Home meds as appropriate Monitor labs GI prophylaxis: Pepcid 20 mg PO BID DVT prophylaxis: Heparin 5000 units subcu every 12 hours Monitor vital signs and address as appropriate Discharge planning: Patient to return home with home care Further recommendations pending patient's course Nurse practitioner note has been reviewed by physician. Signing provider agrees with the documented findings, assessment, and plan of care.
[2017-07-03 17:18] LABS: Glucose,Whole Blood 122 mg/dL (75-99)
[2017-07-03] MEDS: INSULIN ASPART 100 UNIT/ML 1 ML 10 ML VIAL SQ SCH ×2 (17:43→22:34)
[2017-07-03] MEDS: FAMOTIDINE 20 MG TAB PO SCH (19:46)
[2017-07-03 20:22] LABS: Glucose,Whole Blood 143 mg/dL (75-99)
[2017-07-03 22:16] LABS: Hemoglobin A1C 5.4 % (4.0-6.0)
[2017-07-04] MEDS: ACETAMINOPHEN TAB 500 MG TAB PO PRN ×3 (03:56→21:14)
[2017-07-04] MEDS: LEVOTHYROXINE 100 MCG TAB PO SCH (06:15)
[2017-07-04 07:10] LABS: Glucose,Whole Blood 106 mg/dL (75-99)
[2017-07-04] MEDS: INSULIN ASPART 100 UNIT/ML 1 ML 10 ML VIAL SQ SCH ×4 (07:30→21:08)
[2017-07-04 08:33] LABS: Basophils % (A) 0 %; Eosinophils # (A) 0.2 k/uL (0-0.7); Eosinophils % (A) 3 %; HCT 29.9 % (34.0-46.0); HGB 9.5 gm/dL (11.4-16.0); Lymphocytes # (A) 1.6 k/uL (1.0-4.8); Lymphocytes % (A) 24 %; MCHC 31.7 g/dL (31.0-37.0); MCV 85.1 fL (80.0-100.0); Mean Platelet Volume 7.5; Monocytes # (A) 0.6 k/uL (0-1.0); Monocytes % (A) 9 %; Neutrophils % (A) 62 %; Platelet Count 145 k/uL (150-450); RBC 3.51 m/uL (3.80-5.40); RDW 14.6 % (11.5-15.5); WBC 6.4 k/uL (3.8-10.6)
[2017-07-04] MEDS: FAMOTIDINE 20 MG TAB PO SCH (08:53)
[2017-07-04] MEDS: ESCITALOPRAM 10 MG TAB PO SCH (08:53)
[2017-07-04] MEDS: AMIODARONE 100 MG TAB PO SCH (08:54)
[2017-07-04] MEDS: METOPROLOL SUCCINATE (ER) 25 MG TAB.ER.24H PO SCH (08:54)
[2017-07-04] MEDS: HEPARIN SODIUM,PORCINE 5,000 UNIT/ML 1 ML VIAL SQ SCH ×2 (08:55→21:08)
[2017-07-04 09:00] LABS: ALT 33 U/L (9-52); AST 21 U/L (14-36); Albumin 2.5 g/dL (3.5-5.0); Alkaline Phosphatase 96 U/L (38-126); Amylase 81 U/L (30-110); Anion Gap 4 mmol/L; Blood Urea Nitrogen 14 mg/dL (7-17); Calcium 8.6 mg/dL (8.4-10.2); Carbon Dioxide 28 mmol/L (22-30); Chloride 100 mmol/L (98-107); Glucose 89 mg/dL (74-99); Lipase 408 U/L (23-300); Potassium 4.3 mmol/L (3.5-5.1); Sodium 132 mmol/L (137-145); Total Bilirubin 0.3 mg/dL (0.2-1.3); Total Protein 5.1 g/dL (6.3-8.2)
--- NOTE | 2017-07-04 10:59 | P.PN ---
Subjective Progress Note Date: 07/04/17 86-year-old female who presented to the emergency room on 07/01/2017 after she had a syncopal episode at home. She states she was feeling nauseous and was attempting to make it to the bathroom to have a bowel movement but she did not make it in time. She proceeded to the bathroom to clean herself up when she had a brief loss of consciousness. She also had complaints of right shoulder pain. In the emergency room, an EKG was completed revealing sinus bradycardia with no acute ST or T-wave abnormalities. X-ray of the right shoulder was completed revealing subacromial impingement likely due to chronic rotator cuff tear and was negative for fracture. Laboratory studies completed revealed white count of 8.3, hemoglobin 10.9, platelet count 124, sodium 124, potassium 3.9, BUN 26, creatinine 1.10, magnesium 1.9, going phosphatase 142, AST 26, ALC 38, DNP 544. Troponin negative 1. Her lipase was found to be elevated at 1381. Testing for influenza A and B was negative. Urinalysis revealed cloudy urine with trace leukocyte esterase. The patient was admitted to the hospital under the care of Dr. Mantilla. Consultations were placed to cardiology, gastroenterology, and orthopedics. Patient underwent CT of the abdomen and pelvis on 07/02/2017 which revealed urinary bladder that was diffusely distended, correlate for urinary retention, right pubic bone fracture, right-sided inguinal hernia, diverticulosis, and thickening of the antrum/pylorus of the stomach. 07/03/2017 The patient was seen and examined at the bedside. She is currently without concerns or complaints. She denies chest pain or pressure. Denies shortness of breath. Denies nausea or vomiting. States she is tolerating oral intake without difficulty. She states that she had a bowel movement yesterday and it was normal in characteristics. She states she has been voiding without difficulty, however she states she does feel that she is voiding less than she normally does. Denies frequency or incontinence. Spoke with patient regarding CT results and patient states that she fell in May and was told that she had a fracture in her pelvis. 07/04/2017 Patient seen and examined at the bedside. Patient is awake and alert. Patient was bladder scanned yesterday and found to be retaining urine. An indwelling urinary catheter was inserted with return of 700cc of urine. Patient states she had a headache this morning but it has since resolved. She denies pain or comfort. Denies shortness of breath. Denies chest pain or pressure. Amylase has improved from 119 to 81. Lipase has improved from 653 to 408. Sodium remains low at 132. Hemoglobin today is 9.5. Telemetry reveals SB with a rate in the 50s. Blood pressure has been stable, slightly elevated this morning at 154/68. Objective - Vital Signs Vital signs: Vital Signs Temp 97.7 F 07/04/17 07:00 Pulse 63 07/04/17 07:40 Resp 16 07/04/17 07:40 BP 154/68 07/04/17 07:00 Pulse Ox 97 07/04/17 07:00 Intake & Output 07/03/17 07/04/17 07/04/17 18:59 06:59 18:59 Intake Total 1135 325 460 Output Total 1908 2150 Balance -773 -1825 460 Weight 66.81 kg Intake: Intake, IV Titration 375 325 Amount Sodium Chloride 0.9% 1, 375 325 000 ml @ 75 mls/hr IV . [id number] [facility] Rx#:[id number] Oral 760 460 Output: Urine 1300 2150 Uretheral (Brown) 700 Post Void Residual 608 Other: Voiding Method Toilet Indwelling Catheter Indwelling Catheter Bedside Commode - Exam GENERAL: This is a 86-year-old female in no apparent distress at the time of examination. Pleasant and cooperative. HEENT: Head is atraumatic, normocephalic. Pupils are equal, round, and reactive to light. Sclerae anicteric. Conjunctivae are clear. Mucus membranes of the mouth are moist. Neck is supple. RESPIRATORY: Clear to ausculation. No wheezes, rales, or rhonchi. No use of accessory muscles. Patient maintaining oxygen saturation greater than 92% on room air. No chest wall tenderness is noted on palpation or with deep breathing. CARDIOVASCULAR: Regular rate and rhythm. S1 and S2 noted. No systolic or diastolic murmur auscultated. No JVD noted. No S3 or S4 noted. GASTROINTESTINAL: No distention noted. Abdomen soft and round. Normal active bowel sounds auscultated x 4 quadrants. No pain or tenderness noted upon palpation. INTEGUMENTARY: No cyanosis. No jaundice. No rashes noted. No cellulitis noted. EXTREMITIES: 2+ peripheral pulses. No evidence of peripheral edema. No calf tenderness noted. NEUROLOGIC: Cranial nerves II-XII intact. PSYCHIATRIC: Awake, alert, and oriented X 3. Appropriate affect. Intact judgement and insight. - Labs CBC & Chem 7: 07/04/17 07:29 07/04/17 07:29 Labs: Abnormal Lab Results - Last 24 Hours (Table) 07/03/17 07/03/17 07/04/17 Range/Units 17:16 20:20 07:08 RBC (3.80-5.40) m/uL Hgb (11.4-16.0) gm/dL Hct (34.0-46.0) % Plt Count (150-450) k/uL Sodium (137-145) mmol/L POC Glucose (mg/dL) 122 H 143 H 106 H (75-99) mg/dL Total Protein (6.3-8.2) g/dL Albumin (3.5-5.0) g/dL Lipase (23-300) U/L 07/04/17 07/04/17 Range/Units 07:29 07:29 RBC 3.51 L (3.80-5.40) m/uL Hgb 9.5 L (11.4-16.0) gm/dL Hct 29.9 L (34.0-46.0) % Plt Count 145 L (150-450) k/uL Sodium 132 L (137-145) mmol/L POC Glucose (mg/dL) (75-99) mg/dL Total Protein 5.1 L (6.3-8.2) g/dL Albumin 2.5 L (3.5-5.0) g/dL Lipase 408 H (23-300) U/L Assessment and Plan Plan: ASSESSMENT: Syncope Paroxysmal atrial fibrillation, not on long-term anticoagulation secondary to history of GIB Elevated amylase and lipase, no clinical features of pancreatitis, possibly secondary to transient hypoperfusion of pancreas per GI Diabetes mellitus, type II, hemoglobin A1c 5.4% Urinary retention requiring initiation of indwelling urinary catheter Essential hypertension Right shoulder cuff arthropathy Right pubic bone fracture, s/p fall in May per patient Coronary artery disease with history of myocardial infarction Hyponatremia, improving since day of admission Normocytic, normochromic anemia, type unknown Hypothyroidism PLAN: Cardiology on consult. Appreciate recommendations and input Orthopedics on consult. Appreciate recommendations and input GI on consult. Appreciate recommendations and input Discontinue IV fluids Continue urinary catheter at this time Per Dr. aMntilla, patient may be discharged home with brown and follow up outpatient with urology Capillary blood glucose accu-checks AC/HS NovoLog sliding scale insulin coverage AC/HS Home meds as appropriate Monitor labs PT/OT Activity as tolerated GI prophylaxis: Pepcid 20 mg PO BID DVT prophylaxis: Heparin 5000 units subcu every 12 hours Monitor vital signs and address as appropriate Discharge planning: Patient to return home with home care Further recommendations pending patient's course Anticipate discharge home tomorrow if patient remains stable Nurse practitioner note has been reviewed by physician. Signing provider agrees with the documented findings, assessment, and plan of care.
[2017-07-04 11:30] LABS: Glucose,Whole Blood 128 mg/dL (75-99)
[2017-07-04 16:37] LABS: Glucose,Whole Blood 119 mg/dL (75-99)
[2017-07-04 20:24] LABS: Glucose,Whole Blood 186 mg/dL (75-99)
[2017-07-05] MEDS: LEVOTHYROXINE 100 MCG TAB PO SCH (06:16)
[2017-07-05 07:04] LABS: Glucose,Whole Blood 98 mg/dL (75-99)
[2017-07-05 08:11] VITALS: BP 182/75; PULSE 58; TEMP 97.6
[2017-07-05] MEDS: INSULIN ASPART 100 UNIT/ML 1 ML 10 ML VIAL SQ SCH ×2 (08:46→12:57)
[2017-07-05] MEDS ORDERED: FAMOTIDINE 20 MG TAB PO SCH (09:00)
[2017-07-05] MEDS: HEPARIN SODIUM,PORCINE 5,000 UNIT/ML 1 ML VIAL SQ SCH (09:03)
[2017-07-05] MEDS: ESCITALOPRAM 10 MG TAB PO SCH (09:08)
[2017-07-05] MEDS: AMIODARONE 100 MG TAB PO SCH (09:09)
[2017-07-05] MEDS: METOPROLOL SUCCINATE (ER) 25 MG TAB.ER.24H PO SCH (09:10)
--- NOTE | 2017-07-05 09:12 | P.DS ---
Providers Date of admission: 07/01/17 23:25 Expected date of discharge: 07/05/17 Attending physician: Zak Mantilla Consults: 07/01/17 23:23 Consult Physician Urgent Consulting Provider: [facility] Consult Reason/Comments: Syncope Do you want consulting provider notified?: Yes Consult Physician Urgent Consulting Provider: Fransisco Blanco Consult Reason/Comments: Shoulder injury Do you want consulting provider notified?: Yes Consult Physician Urgent Consulting Provider: Ani Cm Consult Reason/Comments: Pancreatitis Do you want consulting provider notified?: Yes Primary care physician: Zak Mantilla [facility] Course: 86-year-old female who presented to the emergency room on 07/01/2017 after she had a syncopal episode at home. She states she was feeling nauseous and was attempting to make it to the bathroom to have a bowel movement but she did not make it in time. She proceeded to the bathroom to clean herself up when she had a brief loss of consciousness. She also had complaints of right shoulder pain. In the emergency room, an EKG was completed revealing sinus bradycardia with no acute ST or T-wave abnormalities. X-ray of the right shoulder was completed revealing subacromial impingement likely due to chronic rotator cuff tear and was negative for fracture. Laboratory studies completed revealed white count of 8.3, hemoglobin 10.9, platelet count 124, sodium 124, potassium 3.9, BUN 26, creatinine 1.10, magnesium 1.9, going phosphatase 142, AST 26, ALC 38, DNP 544. Troponin negative 1. Her lipase was found to be elevated at 1381. Testing for influenza A and B was negative. Urinalysis revealed cloudy urine with trace leukocyte esterase. The patient was admitted to the hospital under the care of Dr. Mantilla. Consultations were placed to cardiology, gastroenterology, and orthopedics. Patient underwent CT of the abdomen and pelvis on 07/02/2017 which revealed urinary bladder that was diffusely distended, correlate for urinary retention, right pubic bone fracture, right-sided inguinal hernia, diverticulosis, and thickening of the antrum/pylorus of the stomach. Spoke with patient regarding CT results and patient states that she fell in May and was told that she had a fracture in her pelvis. Patients amylase and lipase and trending downward. Patient denies any abdominal pain. She was evaluated by GI and no intervention or further workup was recommended. Orthopedics evaluated the patient and no acute intervention was recommended. The patient may follow up on an as needed basis with orthopedics outpatient. She was evaluated by cardiology and no further recommendations were made from a cardiology standpoint. She is to follow up with cardiology on an as-needed basis outpatient. Patient was bladder scanned 07/03/2017 and found to be retaining urine. An indwelling urinary catheter was inserted with return of 700cc of urine. Per Dr Mantilla, patient may discharged home with urinary catheter and is to follow up outpatient with urology. She was deemed stable for discharge. Patient is to resume previous home medications discharge diagnosis Syncope Paroxysmal atrial fibrillation, not on long-term anticoagulation secondary to history of GIB Elevated amylase and lipase, no clinical features of pancreatitis, possibly secondary to transient hypoperfusion of pancreas per GI Diabetes mellitus, type II, hemoglobin A1c 5.4% Urinary retention requiring initiation of indwelling urinary catheter Essential hypertension Right shoulder cuff arthropathy Right pubic bone fracture, s/p fall in May per patient Coronary artery disease with history of myocardial infarction Hyponatremia, improving since day of admission Normocytic, normochromic anemia, type unknown Hypothyroidism Nurse practitioner note has been reviewed by physician. Signing provider agrees with the documented findings, assessment, and plan of care. Plan - Discharge Summary Discharge Rx Participant: No New Discharge Prescriptions: Continue Docusate [Colace] 100 mg PO DAILY Multivit-Min/FA/Lycopen/Lutein [Centrum Silver Tablet] 1 tab PO DAILY Metoprolol Succinate (ER) [Toprol XL] 25 mg PO DAILY #30 tab.er.24h Acetaminophen [Tylenol] 500 mg PO Q4-6H PRN PRN Reason: Pain Escitalopram [Lexapro] 10 mg PO DAILY #30 tab Levothyroxine Sodium [Synthroid] 100 mcg PO DAILY Sennosides-Docusate Sodium [Senokot-S] 1 tab PO BID #60 tablet Amiodarone [Cordarone] 100 mg PO DAILY Famotidine [Pepcid] 40 mg PO BID Discharge Medication List Docusate [Colace] 100 mg PO DAILY 09/17/15 [History] Multivit-Min/FA/Lycopen/Lutein [Centrum Silver Tablet] 1 tab PO DAILY 12/06/15 [ History] Metoprolol Succinate (ER) [Toprol XL] 25 mg PO DAILY #30 tab.er.24h 12/14/15 [Rx ] Acetaminophen [Tylenol] 500 mg PO Q4-6H PRN 12/20/15 [History] Escitalopram [Lexapro] 10 mg PO DAILY #30 tab 12/23/15 [Rx] Levothyroxine Sodium [Synthroid] 100 mcg PO DAILY 07/24/16 [History] Sennosides-Docusate Sodium [Senokot-S] 1 tab PO BID #60 tablet 05/22/17 [Rx] Amiodarone [Cordarone] 100 mg PO DAILY 07/02/17 [History] Famotidine [Pepcid] 40 mg PO BID 07/02/17 [History] Follow up Appointment(s)/Referral(s): Fredrick Valera MD [STAFF PHYSICIAN] - As Needed Javy Staples MD [STAFF PHYSICIAN] - As Needed Alex Church MD [STAFF PHYSICIAN] - 1 Week Zak Mantilla DO [Primary Care Provider] - 1 Week Fransisco Blanco DO [Doctor of Osteopathic Medicine] - As Needed Activity/Diet/Wound Care/Special Instructions: Patient to be discharged home with indwelling urinary catheter Empty catheter drainage bag when 1/3-1/2 full Leave catheter in place until you see Dr. Church, urologist. Discharge Disposition: HOME SELF-CARE
[2017-07-05 09:17] LABS: Basophils % (A) 0 %; Eosinophils # (A) 0.2 k/uL (0-0.7); Eosinophils % (A) 4 %; HCT 31.5 % (34.0-46.0); HGB 10.1 gm/dL (11.4-16.0); Lymphocytes # (A) 1.3 k/uL (1.0-4.8); Lymphocytes % (A) 24 %; MCH 27.8 pg (25.0-35.0); MCHC 32.1 g/dL (31.0-37.0); MCV 86.7 fL (80.0-100.0); Mean Platelet Volume 8.4; Monocytes # (A) 0.5 k/uL (0-1.0); Monocytes % (A) 9 %; Neutrophils # (A) 3.3 k/uL (1.3-7.7); Neutrophils % (A) 62 %; Platelet Count 144 k/uL (150-450); RBC 3.64 m/uL (3.80-5.40); RDW 15.7 % (11.5-15.5); WBC 5.4 k/uL (3.8-10.6)
[2017-07-05 09:22] LABS: ALT 41 U/L (9-52); AST 26 U/L (14-36); Albumin 2.7 g/dL (3.5-5.0); Alkaline Phosphatase 102 U/L (38-126); Amylase 57 U/L (30-110); Anion Gap 5 mmol/L; Blood Urea Nitrogen 14 mg/dL (7-17); Calcium 8.7 mg/dL (8.4-10.2); Carbon Dioxide 30 mmol/L (22-30); Chloride 99 mmol/L (98-107); Glucose 132 mg/dL (74-99); Lipase 220 U/L (23-300); Potassium 4.4 mmol/L (3.5-5.1); Sodium 134 mmol/L (137-145); Total Bilirubin 0.3 mg/dL (0.2-1.3); Total Protein 5.4 g/dL (6.3-8.2)
[2017-07-05 12:05] LABS: Glucose,Whole Blood 123 mg/dL (75-99)
[2017-07-05] MEDS: ACETAMINOPHEN TAB 500 MG TAB PO PRN (13:00)
== END 2017-07-05 14:24 | disposition home or self-care (01) | DRG 312 ==
LOC: EC 20:27 → 5MS5E 23:25
PROVIDERS: ADMIT Family Medicine; ATTEND Family Medicine
DX: R55 Syncope and collapse (principal); N17.9 Acute kidney failure, unspecified; S32.501A Unspecified fracture of right pubis, initial encounter for closed fracture; D69.6 Thrombocytopenia, unspecified; E86.0 Dehydration; E87.1 Hypo-osmolality and hyponatremia; D64.9 Anemia, unspecified; I05.0 Rheumatic mitral stenosis; E11.9 Type 2 diabetes mellitus without complications; I48.0 Paroxysmal atrial fibrillation; E03.9 Hypothyroidism, unspecified; I10 Essential (primary) hypertension; I25.10 Atherosclerotic heart disease of native coronary artery without angina pectoris; I25.2 Old myocardial infarction; M12.9 Arthropathy, unspecified; M75.100 Unspecified rotator cuff tear or rupture of unspecified shoulder, not specified as traumatic; Z79.899 Other long term (current) drug therapy; Z80.8 Family history of malignant neoplasm of other organs or systems; Z82.49 Family history of ischemic heart disease and other diseases of the circulatory system; Z85.828 Personal history of other malignant neoplasm of skin; Z87.440 Personal history of urinary (tract) infections; Z90.49 Acquired absence of other specified parts of digestive tract; Z90.710 Acquired absence of both cervix and uterus; Z91.81 History of falling; Z88.2 Allergy status to sulfonamides; Z79.890 Hormone replacement therapy; R33.9 Retention of urine, unspecified
CPT/HCPCS: 36415; 74176; 80053; 80061; 81001; 82150; 82550; 82553; 83036; 83690; 83735; 83880; 84484; 85025; 85610; 85730; 86850; 86900; 86901; 87502; 93005; 96361; 96372; 96374; 99285

== ENCOUNTER 2017-08-09 09:16 | Emergency (ER) | payer MEDICARE, BC ==
[2017-08-09 09:25] VITALS: RESP 16
[2017-08-09] MEDS ORDERED: SODIUM CHLORIDE 0.9% 1,000 ML IV STA (09:59)
--- NOTE | 2017-08-09 10:05 | ED ---
General Adult HPI - General Chief complaint: Syncope Stated complaint: Near-syncope Time Seen by Provider: 08/09/17 09:51 Source: patient, family, RN notes reviewed Mode of arrival: EMS Limitations: no limitations - History of Present Illness Initial comments: Patient is a pleasant 87-year-old female presenting to the emergency department with near syncopal episode. Patient does have a history of several previous syncopal episodes. Episode occurred today following changing of urinary catheter. Patient has changed her catheter multiple times previously without problems. Previous syncopal episodes have generally been associated with bathroom use. Patient feels fine at this time and has no complaints. No chest pain. No dyspnea. No abdominal pain. No confusion. No weakness. - Related Data Home Medications Medication Instructions Recorded Confirmed Docusate [Colace] 100 mg PO DAILY 09/17/15 08/09/17 Multivit-Min/FA/Lycopen/Lutein 1 tab PO DAILY 12/06/15 08/09/17 [Centrum Silver Tablet] Levothyroxine Sodium [Synthroid] 100 mcg PO DAILY 07/24/16 08/09/17 Amiodarone [Cordarone] 100 mg PO DAILY 07/02/17 08/09/17 Famotidine [Pepcid] 40 mg PO BID 07/02/17 08/09/17 Furosemide [Lasix] 20 mg PO DAILY PRN 08/09/17 08/09/17 Oxymetazoline 0.05% Nasl Cookson 1 spray EA NOSTRIL BID 08/09/17 08/09/17 [Afrin 0.05% Nasal Cookson] Potassium Chloride ER [K-Dur 10] 10 meq PO DAILY PRN 08/09/17 08/09/17 aMILoride-HCTZ 5-50 mg [Moduretic 1 tab PO DAILY 08/09/17 08/09/17 5-50] Previous Rx's Medication Instructions Recorded Metoprolol Succinate (ER) [Toprol 25 mg PO DAILY #30 tab.er.24h 12/14/15 XL] Escitalopram [Lexapro] 10 mg PO DAILY #30 tab 12/23/15 Allergies Allergy/AdvReac Type Severity Reaction Status Date / Time sulfamethoxazole Allergy Rash/Hives Verified 08/09/17 09:42 [From Bactrim] trimethoprim [From Bactrim] Allergy Rash/Hives Verified 08/09/17 09:42 Review of Systems ROS Statement: Those systems with pertinent positive or pertinent negative responses have been documented in the HPI. ROS Other: All systems not noted in ROS Statement are negative. Constitutional: Denies: fever Eyes: Denies: eye pain ENT: Denies: ear pain Respiratory: Denies: cough, dyspnea Cardiovascular: Denies: chest pain Endocrine: Denies: fatigue Gastrointestinal: Denies: abdominal pain Genitourinary: Denies: dysuria Musculoskeletal: Denies: back pain Skin: Denies: rash Neurological: Denies: headache, weakness, confusion Past Medical History Past Medical History: Atrial Fibrillation, Cancer, Hypertension, Myocardial Infarction ([place]), Pneumonia Additional Past Medical History / Comment(s): borderline diabetic, diverticulitIs, SCIATIC NERVE PAIN, UTI, SKIN CANCER REMOVED FROM FACE, CONSTIPATION, CHRONIC BACK PAIN DJD, RT INGUINAL HERNIA, GROVERS DISEASE Last Myocardial Infarction Date:: 1995? BEST GUESS History of Any Multi-Drug Resistant Organisms: None Reported Past Surgical History: Adenoidectomy, Appendectomy, Cholecystectomy, Hernia Repair, Hysterectomy, Tonsillectomy Additional Past Surgical History / Comment(s): varicose vein, CATARACTS, SKIN CANCER REMOVED FROM FACE, COLONOSCOPY. Past Anesthesia/Blood Transfusion Reactions: No Reported Reaction Past Psychological History: No Psychological Hx Reported Smoking Status: Never smoker Past Alcohol Use History: None Reported Past Drug Use History: None Reported - Past Family History Sister(s) Family Medical History: Cancer Additional Family Medical History / Comment(s): BONE CA Mother Family Medical History: Myocardial Infarction ([place]) Father Family Medical History: Congestive Heart Failure (CHF) General Exam Limitations: no limitations General appearance: alert, in no apparent distress Head exam: Present: atraumatic Eye exam: Present: normal appearance, PERRL, EOMI. Absent: nystagmus ENT exam: Present: normal oropharynx Neck exam: Present: normal inspection Respiratory exam: Present: normal lung sounds bilaterally Cardiovascular Exam: Present: regular rate, normal rhythm GI/Abdominal exam: Present: soft. Absent: tenderness Extremities exam: Present: normal inspection. Absent: pedal edema, calf tenderness Neurological exam: Present: alert, oriented X3, CN II-XII intact. Absent: motor sensory deficit Expanded Neurological exam: Present: protecting the airway Patient oriented to: Present: person, place, time Speech: Present: fluid speech Cranial nerves: EOM's Intact: Normal Motor strength exam: RUE: 5, LUE: 5, RLE: 5, LLE: 5 Eye Response: (4) open spontaneously Motor Response: (6) obeys commands Verbal Response: (5) oriented Psychiatric exam: Present: normal affect, normal mood Skin exam: Present: normal color Course Vital Signs 08/09/17 08/09/17 08/09/17 09:18 10:28 11:23 Temperature 97.9 F Pulse Rate 50 L 52 L 55 L Respiratory 16 16 16 Rate Blood Pressure 141/63 167/72 177/74 O2 Sat by Pulse 100 100 98 Oximetry - Reevaluation(s) Reevaluation #1: 08/09/17 10:06 Previous EKGs reviewed. Including 07-24-16. EKG Findings - EKG Comments: EKG Findings:: Sinus rhythm with frequent PVCs. For screening AV block with a MI of 216. QRS 96. QT 492. QTC 556. Left axis. Normal QRS. No acute ST change. Medical Decision Making - Medical Decision Making Patient reevaluated and resting comfortably in bed. Patient remained symptom- free. Patient was able to get out of bed and walk around without any difficulty. Case was discussed in detail with Dr. Mantilla who has previously evaluated the patient for this. He does feel comfortable with discharge home and will follow-up on Monday. Patient and family are updated on results and plan. - Lab Data Result diagrams: 08/09/17 09:33 08/09/17 09:33 Lab Results 08/09/17 08/09/17 08/09/17 Range/Units 09:33 09:33 09:33 WBC 5.3 (3.8-10.6) k/uL RBC 4.06 (3.80-5.40) m/uL Hgb 11.1 L (11.4-16.0) gm/dL Hct 33.3 L (34.0-46.0) % MCV 82.1 (80.0-100.0) fL MCH 27.4 (25.0-35.0) pg MCHC 33.3 (31.0-37.0) g/dL RDW 15.2 (11.5-15.5) % Plt Count 153 (150-450) k/uL Neutrophils % 54 % Lymphocytes % 28 % Monocytes % 8 % Eosinophils % 9 % Basophils % 1 % Neutrophils # 2.8 (1.3-7.7) k/uL Lymphocytes # 1.5 (1.0-4.8) k/uL Monocytes # 0.4 (0-1.0) k/uL Eosinophils # 0.5 (0-0.7) k/uL Basophils # 0.0 (0-0.2) k/uL PT (9.0-12.0) sec INR (<1.2) APTT (22.0-30.0) sec Sodium 133 L (137-145) mmol/L Potassium 3.8 (3.5-5.1) mmol/L Chloride 96 L (98-107) mmol/L Carbon Dioxide 30 (22-30) mmol/L Anion Gap 7 mmol/L BUN 18 H (7-17) mg/dL Creatinine 1.03 (0.52-1.04) mg/dL Est GFR (MDRD) Af Amer >60 (>60 ml/min/1.73 sqM) Est GFR (MDRD) Non-Af 50 (>60 ml/min/1.73 sqM) Glucose 108 H (74-99) mg/dL POC Glucose (mg/dL) (75-99) mg/dL POC Glu Vice Principal ID Calcium 8.7 (8.4-10.2) mg/dL Magnesium 2.2 (1.6-2.3) mg/dL Total Bilirubin 0.4 (0.2-1.3) mg/dL AST 21 (14-36) U/L ALT 28 (9-52) U/L Alkaline Phosphatase 100 (38-126) U/L Total Creatine Kinase 39 (30-135) U/L CK-MB (CK-2) 0.9 (0.0-2.4) ng/mL CK-MB (CK-2) Rel Index 2.3 Troponin I <0.012 (0.000-0.034) ng/mL Total Protein 5.9 L (6.3-8.2) g/dL Albumin 3.1 L (3.5-5.0) g/dL Urine Color Urine Appearance (Clear) Urine pH (5.0-8.0) Ur Specific Cobb (1.001-1.035) Urine Protein (Negative) Urine Glucose (UA) (Negative) Urine Ketones (Negative) Urine Blood (Negative) Urine Nitrite (Negative) Urine Bilirubin (Negative) Urine Urobilinogen (<2.0) mg/dL Ur Leukocyte Esterase (Negative) Urine RBC (0-5) /hpf Urine WBC (0-5) /hpf Urine WBC Clumps (None) /hpf Ur Squamous Epith Cells (0-4) /hpf Amorphous Sediment (None) /hpf Urine Bacteria (None) /hpf Hyaline Casts (0-2) /lpf Urine Mucus (None) /hpf 08/09/17 08/09/17 08/09/17 Range/Units 09:33 10:08 10:10 WBC (3.8-10.6) k/uL RBC (3.80-5.40) m/uL Hgb (11.4-16.0) gm/dL Hct (34.0-46.0) % MCV (80.0-100.0) fL MCH (25.0-35.0) pg MCHC (31.0-37.0) g/dL RDW (11.5-15.5) % Plt Count (150-450) k/uL Neutrophils % % Lymphocytes % % Monocytes % % Eosinophils % % Basophils % % Neutrophils # (1.3-7.7) k/uL Lymphocytes # (1.0-4.8) k/uL Monocytes # (0-1.0) k/uL Eosinophils # (0-0.7) k/uL Basophils # (0-0.2) k/uL PT 10.8 (9.0-12.0) sec INR 1.1 (<1.2) APTT 23.8 (22.0-30.0) sec Sodium (137-145) mmol/L Potassium (3.5-5.1) mmol/L Chloride (98-107) mmol/L Carbon Dioxide (22-30) mmol/L Anion Gap mmol/L BUN (7-17) mg/dL Creatinine (0.52-1.04) mg/dL Est GFR (MDRD) Af Amer (>60 ml/min/1.73 sqM) Est GFR (MDRD) Non-Af (>60 ml/min/1.73 sqM) Glucose (74-99) mg/dL POC Glucose (mg/dL) 103 H (75-99) mg/dL POC Glu Vice Principal ID Calcium (8.4-10.2) mg/dL Magnesium (1.6-2.3) mg/dL Total Bilirubin (0.2-1.3) mg/dL AST (14-36) U/L ALT (9-52) U/L Alkaline Phosphatase (38-126) U/L Total Creatine Kinase (30-135) U/L CK-MB (CK-2) (0.0-2.4) ng/mL CK-MB (CK-2) Rel Index Troponin I (0.000-0.034) ng/mL Total Protein (6.3-8.2) g/dL Albumin (3.5-5.0) g/dL Urine Color Yellow Urine Appearance Turbid H (Clear) Urine pH 7.5 (5.0-8.0) Ur Specific Cobb 1.012 (1.001-1.035) Urine Protein Trace H (Negative) Urine Glucose (UA) Negative (Negative) Urine Ketones Negative (Negative) Urine Blood Negative (Negative) Urine Nitrite Negative (Negative) Urine Bilirubin Negative (Negative) Urine Urobilinogen 2.0 (<2.0) mg/dL Ur Leukocyte Esterase Large H (Negative) Urine RBC 4 (0-5) /hpf Urine WBC 28 H (0-5) /hpf Urine WBC Clumps Occasional H (None) /hpf Ur Squamous Epith Cells 1 (0-4) /hpf Amorphous Sediment Rare H (None) /hpf Urine Bacteria Occasional H (None) /hpf Hyaline Casts 6 H (0-2) /lpf Urine Mucus Rare H (None) /hpf - Radiology Data Radiology results: image reviewed (Chest x-ray shows no acute process.) Disposition Clinical Impression: Near syncope Disposition: HOME SELF-CARE Condition: Stable Instructions: Near Syncope (ED) Additional Instructions: Please follow-up Monday with Dr. Mantilla. Return for weakness, confusion, pain, feeling like your going to pass out or passing out, worsening symptoms or other concerns. Referrals: Zak Mantilla DO [Primary Care Provider] - 1-2 days Time of Disposition: 11:41
[2017-08-09 10:17] LABS: Glucose,Whole Blood 103 mg/dL (75-99)
[2017-08-09 10:20] LABS: Basophils % (A) 1 %; Eosinophils # (A) 0.5 k/uL (0-0.7); Eosinophils % (A) 9 %; HCT 33.3 % (34.0-46.0); HGB 11.1 gm/dL (11.4-16.0); Lymphocytes # (A) 1.5 k/uL (1.0-4.8); Lymphocytes % (A) 28 %; MCH 27.4 pg (25.0-35.0); MCHC 33.3 g/dL (31.0-37.0); MCV 82.1 fL (80.0-100.0); Monocytes # (A) 0.4 k/uL (0-1.0); Monocytes % (A) 8 %; Neutrophils # (A) 2.8 k/uL (1.3-7.7); Neutrophils % (A) 54 %; Platelet Count 153 k/uL (150-450); RBC 4.06 m/uL (3.80-5.40); RDW 15.2 % (11.5-15.5); WBC 5.3 k/uL (3.8-10.6)
[2017-08-09 10:25] LABS: INR 1.1 (<1.2); Partial Thromboplastin Time 23.8 sec (22.0-30.0); Prothrombin Time 10.8 sec (9.0-12.0)
[2017-08-09 10:32] LABS: ALT 28 U/L (9-52); AST 21 U/L (14-36); Albumin 3.1 g/dL (3.5-5.0); Alkaline Phosphatase 100 U/L (38-126); Anion Gap 7 mmol/L; Blood Urea Nitrogen 18 mg/dL (7-17); Calcium 8.7 mg/dL (8.4-10.2); Carbon Dioxide 30 mmol/L (22-30); Chloride 96 mmol/L (98-107); Glucose 108 mg/dL (74-99); Potassium 3.8 mmol/L (3.5-5.1); Sodium 133 mmol/L (137-145); Total Bilirubin 0.4 mg/dL (0.2-1.3); Total Protein 5.9 g/dL (6.3-8.2)
--- NOTE | 2017-08-09 10:37 | XR ---
EXAMINATION TYPE: XR chest 2V DATE OF EXAM: 08/09/2017 COMPARISON: 05/22/2017 HISTORY: Shortness of breath TECHNIQUE: Frontal and lateral views of the chest are obtained. FINDINGS: Scattered senescent parenchymal changes noted. Hyperinflation compatible with COPD. No evidence for infiltrate. No evidence for atelectasis. Heart size is stable. Mediastinal structures are stable and grossly unremarkable. No evidence for hilar prominence. Degenerative changes dorsal spine. IMPRESSION: 1. No evidence for acute pulmonary disease.
[2017-08-09 10:39] LABS: Creatine Kinase 39 U/L (30-135)
[2017-08-09 10:47] LABS: Amorphous Sediment,Urine Rare /hpf; Appearance,Urine Turbid (Clear); Bacteria,Urine Occasional /hpf; Bilirubin,Urine Negative (Negative); Blood,Urine Negative (Negative); Color,Urine Yellow; Glucose,Urine (UA) Negative (Negative); Hyaline Casts,Urine 6 /lpf (0-2); Ketones,Urine Negative (Negative); Leukocyte Esterase,Urine Large (Negative); Mucus,Urine Rare /hpf; PH, Urine 7.5 (5.0-8.0); Protein,Urine Trace (Negative); RBC,Urine 4 /hpf (0-5); Specific Gravity,Urine 1.012 (1.001-1.035); Squamous Epithelial Cell,Urine 1 /hpf (0-4); WBC,Urine 28 /hpf (0-5)
[2017-08-09 10:52] LABS: Creatine Kinase MB 0.9 ng/mL (0.0-2.4); Troponin I <0.012 ng/mL (0.000-0.034)
[2017-08-09] MEDS ORDERED: SODIUM CHLORIDE 0.9% 250 ML IV STA (11:39)
[2017-08-09 12:27] VITALS: BP 154/69; PULSE 54; TEMP 98
== END 2017-08-09 12:24 | disposition home or self-care (01) ==
LOC: EC 09:16
DX: R55 Syncope and collapse (principal); I48.91 Unspecified atrial fibrillation; I10 Essential (primary) hypertension; Z79.899 Other long term (current) drug therapy; Z88.1 Allergy status to other antibiotic agents; Z85.828 Personal history of other malignant neoplasm of skin; Z98.890 Other specified postprocedural states; Z87.19 Personal history of other diseases of the digestive system
CPT/HCPCS: 36415; 71046; 80053; 81001; 82550; 82553; 83735; 84484; 85025; 85610; 85730; 87086; 93005; 96360; 96361; 99284

== ENCOUNTER 2018-01-28 11:22 | Emergency (ER) | payer MEDICARE, BC ==
[2018-01-28 11:42] VITALS: RESP 16
[2018-01-28] MEDS ORDERED: LIDOCAINE 1% INJ 10MG/ML (20 ML MDV) SQ ONE (12:42)
[2018-01-28] MEDS ORDERED: ACETAMINOPHEN TAB 325 MG TAB PO STA (12:42)
--- NOTE | 2018-01-28 12:50 | ED ---
Fall HPI - General Chief Complaint: Fall Stated Complaint: FALL, LEFT HAND AND RIB INJURY Time Seen by Provider: 01/28/18 11:51 Source: patient Mode of arrival: ambulatory - History of Present Illness Initial Comments: 87-year-old female patient presents to the emergency department today for evaluation of left-sided rib pain and laceration to left hand. Patient states that approximately 30 minutes prior to arrival she was [place] [employer] when she tripped and fell striking her left ribs on the pew. Patient states that she is having sharp pains to the left lateral ribs. States that she has increased pain when she takes a deep breath but denies any shortness of breath. Patient states she also cut her hand. Patient is unsure when her last tetanus shot was. She denies any numbness or tingling to her extremities. She denies hitting her head or losing consciousness during the fall. States she was using her cane. Patient denies any headache, neck pain, back pain, chest pain, dizziness, weakness, abdominal pain, nausea, vomiting, or difficulties with bowel movements or urination. - Related Data Home Medications Medication Instructions Recorded Confirmed Docusate [Colace] 100 mg PO DAILY 09/17/15 08/09/17 Multivit-Min/FA/Lycopen/Lutein 1 tab PO DAILY 12/06/15 08/09/17 [Centrum Silver Tablet] Levothyroxine Sodium [Synthroid] 100 mcg PO DAILY 07/24/16 08/09/17 Amiodarone [Cordarone] 100 mg PO DAILY 07/02/17 08/09/17 Famotidine [Pepcid] 40 mg PO BID 07/02/17 08/09/17 Furosemide [Lasix] 20 mg PO DAILY PRN 08/09/17 08/09/17 Oxymetazoline 0.05% Nasl [place] 1 spray EA NOSTRIL BID 08/09/17 08/09/17 [Afrin 0.05% Nasal [place]] Potassium Chloride ER [K-Dur 10] 10 meq PO DAILY PRN 08/09/17 08/09/17 aMILoride-HCTZ 5-50 mg [Moduretic 1 tab PO DAILY 08/09/17 08/09/17 5-50] Previous Rx's Medication Instructions Recorded Metoprolol Succinate (ER) [Toprol 25 mg PO DAILY #30 tab.er.24h 12/14/15 XL] Escitalopram [Lexapro] 10 mg PO DAILY #30 tab 12/23/15 Cephalexin [Keflex] 500 mg PO Q6H #28 cap 01/28/18 Allergies Allergy/AdvReac Type Severity Reaction Status Date / Time sulfamethoxazole Allergy Rash/Hives Verified 01/28/18 11:42 [From Bactrim] trimethoprim [From Bactrim] Allergy Rash/Hives Verified 01/28/18 11:42 Review of Systems ROS Statement: Those systems with pertinent positive or pertinent negative responses have been documented in the HPI. ROS Other: All systems not noted in ROS Statement are negative. Past Medical History Past Medical History: Atrial Fibrillation, Cancer, Hypertension, Myocardial Infarction (CT), Pneumonia Additional Past Medical History / Comment(s): borderline diabetic, diverticulitIs, SCIATIC NERVE PAIN, UTI, SKIN CANCER REMOVED FROM FACE, CONSTIPATION, CHRONIC BACK PAIN DJD, RT INGUINAL HERNIA, GROVERS DISEASE Last Myocardial Infarction Date:: 1995? [facility] History of Any Multi-Drug Resistant Organisms: None Reported Past Surgical History: Adenoidectomy, Appendectomy, Cholecystectomy, Hernia Repair, Hysterectomy, Tonsillectomy Additional Past Surgical History / Comment(s): varicose vein, CATARACTS, SKIN CANCER REMOVED FROM FACE, COLONOSCOPY. Past Anesthesia/Blood Transfusion Reactions: No Reported Reaction Past Psychological History: No Psychological Hx Reported Smoking Status: Never smoker Past Alcohol Use History: None Reported Past Drug Use History: None Reported - Past Family History Sister(s) Family Medical History: Cancer Additional Family Medical History / Comment(s): BONE CA Mother Family Medical History: Myocardial Infarction (CT) Father Family Medical History: Congestive Heart Failure (CHF) General Exam Limitations: no limitations General appearance: alert, in no apparent distress, other (This is a well- developed, well-nourished elderly female patient in no acute distress. Vital signs upon presentation are temperature 98.2F, pulse 57, respirations 16, blood pressure 142/72, pulse ox 97% on room air.) Head exam: Present: atraumatic, normocephalic, normal inspection Eye exam: Present: normal appearance, PERRL, EOMI. Absent: scleral icterus, conjunctival injection, periorbital swelling ENT exam: Present: normal exam, normal oropharynx, mucous membranes moist, TM's normal bilaterally Neck exam: Present: normal inspection, full ROM, other (Nontender, no step-off, no deformity to firm midline palpation of the posterior cervical spine. Full range of motion without pain or limitation.). Absent: tenderness, meningismus, lymphadenopathy Respiratory exam: Present: normal lung sounds bilaterally. Absent: respiratory distress, wheezes, rales, rhonchi, stridor Cardiovascular Exam: Present: regular rate, normal rhythm, normal heart sounds. Absent: systolic murmur, diastolic murmur, rubs, gallop, clicks GI/Abdominal exam: Present: soft, normal bowel sounds. Absent: distended, tenderness, guarding, rebound, rigid Extremities exam: Present: full ROM, normal capillary refill, other (Patient has skin tear to the dorsal aspect of the left hand, there is exposed tendon but doesn't appear to be any tendon injury. Patient has full range of motion with him without resistance to the left hand. Skin is otherwise pink, warm, and dry. Cap refills less than 3 seconds. Radial pulses 2+ and equal bilaterally.). Absent: normal inspection, tenderness, pedal edema, joint swelling, calf tenderness Back exam: Present: normal inspection, other (Nontender, no step-off, no deformity to firm midline palpation of the thoracic and lumbar vertebrae. Full range of motion without pain or limitation.). Absent: vertebral tenderness Neurological exam: Present: alert, oriented X3, CN II-XII intact Psychiatric exam: Present: normal affect, normal mood Skin exam: Present: warm, dry, intact, normal color. Absent: rash Course Vital Signs 01/28/18 01/28/18 11:39 15:16 Temperature 98 F 97.2 F L Pulse Rate 57 L 55 L Respiratory 16 16 Rate Blood Pressure 142/72 182/77 O2 Sat by Pulse 97 96 Oximetry Procedures - Laceration Laceration #1 Consent Obtained: verbal consent Time Out Performed: Yes Indication: laceration Site: hand (Dorsal) Size (cm): 7 Description: flap Depth: simple, single layer (Able to visualize tendon) Anesthetic Used: lidocaine 1% Anesthesia Technique: local infiltration Amount (mls): 4 Pre-repair: irrigated extensively Type of Sutures: nylon Size of Sutures: 5-0, other (exofin) Number of Sutures: 7 Technique: simple, interrupted Patient Tolerated Procedure: well, no complications Medical Decision Making - Medical Decision Making 87-year-old female patient presented to the emergency department today for evaluation of left rib pain and skin tear to the left dorsal hand after expressing a fall [place] [employer]. Patient did not hit her head, denies head, neck, or back pain. Physical examination did reveal some left lateral rib tenderness at the midaxillary line. Patient also had a large skin tear to the dorsum of the left hand, there was exposed tendon but there did not appear to be any injury to the tendon. Patient had full range of motion against resistance to all fingers. Neurovascular status was intact. I did repair this laceration as documented. Patient had no evidence for rib fracture on x-ray. We did order incentive spirometry and discussed splinting for possible hairline fracture versus rib contusion. Patient remained stable throughout stay. Vital signs stable. She'll be discharged home to follow-up with hand specialty, she requested Dr. Mason Batista. Wound care, return parameters, signs or symptoms of infection were discussed in detail. We discussed risk of pneumonia with rib injury, she is instructed to perform coughing and deep breathing exercises. She verbalizes understanding and agrees with this plan. - Radiology Data Radiology results: report reviewed, image reviewed PA view of the chest and 4 views of the left ribs are obtained. Report was reviewed in its entirety. Impression by Dr. Padilla shows no displaced rib fracture at this time. Normal lungs. Disposition Clinical Impression: Contusion of rib on left side, Laceration of left hand Disposition: HOME SELF-CARE Condition: Good Instructions: Care For Your Stitches (ED), Laceration (ED), Fall Prevention for Older Adults (ED) Additional Instructions: Keep wound clean and dry. Complete antibiotic prescription in full. Cleanse twice daily with warm water and antibacterial soap. Return for removal of stitches in 7 days. Follow-up with hand surgeon for further evaluation. Return here immediately for any new, worsening, or concerning symptoms. Prescriptions: Cephalexin [Keflex] 500 mg PO Q6H #28 cap Is patient prescribed a controlled substance at d/c from ED?: No Referrals: Zak Mantilla DO [Primary Care Provider] - 1-2 days Fady Batista DO [Doctor of Osteopathic Medicine] - 1-2 days Time of Disposition: 14:49
--- NOTE | 2018-01-28 13:11 | XR ---
EXAMINATION TYPE: XR ribs LT w pa chest x-ray , 5 VIEWS DATE OF EXAM ORDERED: 01/28/2018 HISTORY: Pain. COMPARISON: Previous study dated 08/09/2017. FINDINGS: There is artifact projecting over the left side of the heart. This may represent a 10. The lungs are clear. Pleural spaces are clear. The heart is not enlarged. I do not see evidence of pn eumothorax. No displaced rib fracture is seen. IMPRESSION: I DO NOT SEE DISPLACED RIB FRACTURE AT THIS TIME.
[2018-01-28] MEDS ORDERED: DIPH,PERTUS(ACELL)TETVAC-LF 0.5 ML VIAL IM ONE (14:16)
[2018-01-28] MEDS ORDERED: TOPICAL SKIN ADHESIVE 1 EACH AMP TOPICAL ONE (14:44)
[2018-01-28 15:17] VITALS: BP 182/77; PULSE 55; TEMP 97.2
== END 2018-01-28 15:36 | disposition home or self-care (01) ==
LOC: EC 11:22
DX: S61.412A Laceration without foreign body of left hand, initial encounter (principal); S20.212A Contusion of left front wall of thorax, initial encounter; I48.91 Unspecified atrial fibrillation; I25.2 Old myocardial infarction; I10 Essential (primary) hypertension; Z23 Encounter for immunization; Z79.899 Other long term (current) drug therapy; Z88.2 Allergy status to sulfonamides; Z85.828 Personal history of other malignant neoplasm of skin; W01.0XXA Fall on same level from slipping, tripping and stumbling without subsequent striking against object, initial encounter; Y92.22 Religious institution as the place of occurrence of the external cause
CPT/HCPCS: 71101; 90715; 99283; 12002; 90471; J2001